=== PATIENT | male | born 1950 | race Caucasian/White ===

== ENCOUNTER 2019-06-09 09:11 | Day surgery (SDC) | payer OTHER, MEDICARE ==
[~2019-06-09 09:11] MED LIST: LIDOCAINE 2% INJ-PF (20 MG/ML) 10 ML AMPUL ONE; PROPOFOL INJ 200 MG/20 ML VIAL IV ONE
--- NOTE | 2019-06-09 11:41 | Operative Report ---
Operative Report DATE OF SURGERY: 06/09/19 Operative Report: Risk, benefits and alternatives of the procedure including risk of bleeding, perforation requiring surgery have been explained to the patient in detail and informed consent has been obtained. Patient is taken back to the endoscopy suite and placed in the left, lateral decubital position. Timeout was called. Propofol medication is administered. Rectal examination is done which did not reveal any masses, tears or fissures. An Olympus videoscope was introduced into the patient's rectum. Scope was then carefully advanced all the way to the cecum. Cecum was identified by the usual anatomical landmarks including the ileocecal valve as well as the appendiceal office. Photodocumentation is obtained. Scope was then sequentially pulled back via the various segments of the colon including the ascending colon, hepatic flexure, transverse colon, splenic flexure, descending colon and finally into the rectosigmoid portions of the colon. Retroflexion maneuver is performed. The risks benefits and alternatives of the procedure explained to the patient in detail and informed consent is obtained.A GIF Olympus video scope was inserted into the patient's mouth and hypopharynx ,the esophagus is identified intubated and insufflated ,the scope was then advanced through the esophagus stomach and duodenum, retroflexion maneuver is done the esophagus stomach and first and second portions of the duodenum examined PREOPERATIVE DIAGNOSIS: Weight loss, abdominal pain, change of bowel habits POSTOPERATIVE DIAGNOSIS: Right colon Inflammation status post biopsy. Internal hemorrhoids. Gastritis status post biopsy. Isaacs's esophagus status post biopsy OPERATION: Colonoscopy with biopsy. EGD with biopsy SURGEON: JAMES SHAW ANESTHESIA: LMAC TISSUE REMOVED OR ALTERED: As noted above. COMPLICATIONS: None. ESTIMATED BLOOD LOSS: None. INTRAOPERATIVE FINDINGS: As noted above. PROCEDURE: Patient tolerated the procedure well. No immediate postprocedure complications are noted. Patient is discharged in good condition. Discharge date 06/09/2019. Discharge diet: Regular. Discharge activity: Regular. 2 to 3-week follow-up to discuss findings. Patient is instructed to go to the emergency room or call the office should there be any further problems or questions. 5-year surveillance colonoscopy.
[2019-06-09 11:57] VITALS: BP 136/67
== END 2019-06-09 11:45 | disposition home or self-care (01) ==
LOC: END 09:11
PROVIDERS: ATTEND Internal Medicine Gastroenterology
DX: K29.50 Unspecified chronic gastritis without bleeding (principal); K20.9 Esophagitis, unspecified; K52.9 Noninfective gastroenteritis and colitis, unspecified; K64.8 Other hemorrhoids; Z79.899 Other long term (current) drug therapy; R63.4 Abnormal weight loss; Z68.26 Body mass index [BMI] 26.0-26.9, adult; J44.9 Chronic obstructive pulmonary disease, unspecified; I25.2 Old myocardial infarction; F17.210 Nicotine dependence, cigarettes, uncomplicated; Z79.02 Long term (current) use of antithrombotics/antiplatelets
CPT/HCPCS: 43239; 45380; 88342 ×2; 88305 ×2; 00813; J2704; J3490; 813

== ENCOUNTER → 2019-07-24 | Outpatient (CLI) | payer OTHER ==
--- NOTE | 2019-07-24 15:26 | RADIOLOGY REPORT (SQ) ---
EXAM DESCRIPTION: SMALL BOWEL SERIES COMPLETED DATE/TIME: 07/24/2019 2:59 pm REASON FOR STUDY: (K63.89)OTHER SPECIFIED DISEASES OF INTESTINE K63.89 OTHER SPECIFIED DISEASES OF INTESTINE suspected small-bowel mass, seen on outside previous CT the abdomen and pelvis COMPARISON: CT abdomen pelvis 05/17/2019 FLUOROSCOPY TIME: 1.1 minutes of fluoroscopy was used. 6 images saved to PACS. LIMITATIONS: None. PROCEDURE: Initial crystal slicer image of abdomen acquired, followed by administration of thin barium. Seri al radiographic images acquired. Fluoroscopic images recorded of the terminal ileum and other indica stephanie areas. All images stored on PACS. FINDINGS: COREMAKER FLOOR KUB: Non-obstructive bowel pattern. No abnormal calcifications. Soft tissue planes normal. Right upper quadrant surgical clips from previous cholecystectomy. Solitary surgical clip seen in the right lower quadrant. Status post left hip arthroplasty STOMACH: Large sliding hiatal hernia with moderate free-flowing gastroesophageal reflux. Normal dist ention without abnormality. DUODENUM: Normal mucosal pattern with adequate distention. No displacement or obstruction. JEJUNUM: Normal mucosal pattern. No dilatation, segmentation, strictures or masses. ILEUM: Normal mucosal pattern. No dilatation, segmentation, strictures or masses. On the 3 hour del ayed image contrast can be seen overlying the right groin and patient complained of increased pressur e and pain in the right inguinal area. On the 4 and 5 hour delayed image, there is increased in amou nt of contrast overlying the right groin with soft tissue density visualize on imaging and painful to palpation. Gentle palpation and compression failed to reduce the the inguinal hernia. There is par tial obstruction of the terminal ileum due to the inguinal hernia. Dr. Munguia was called for input and stated he will come to the radiology department to reduce the right inguinal hernia. Dr. Marie rg reduced the hernia and abdominal radiograph shows contrast extending into the ascending colon. TERMINAL ILEUM AND ILEO-CECAL VALVE: Right inguinal hernia containing the terminal ileum and cecum wa s reduced by Dr. Munguia. PROXIMAL COLON: Incompletely imaged. With slight mucosal thickening of the ascending colon possibly due to edema. OTHER: No other significant finding. IMPRESSION: RIGHT INGUINAL HERNIA CONTAINING IN THE TERMINAL ILEUM AND CECUM CAUSING INTERMITTENT SM ALL BOWEL OBSTRUCTION. HERNIA WAS REDUCED BY THE SURGEON DESCRIBED ABOVE. NO VISUALIZATION OF SMALL BOWEL MASS SEEN ON PREVIOUS CT ABDOMEN PELVIS. HE WAS LARGE HIATAL HERNIA WITH MODERATE FREE-FLOWING GASTROESOPHAGEAL REFLUX. COMMENT: Quality ID [id number]: Final reports for procedures using fluoroscopy that document radiation exp osure indices, or exposure time and number of fluorographic images (if radiation exposure indices are not available) TECHNICAL DOCUMENTATION: JOB ID: [id number] 2010 [employer]- All Rights Reserved Reading location - IP/workstation name: [email or web address]
== END ==
LOC: RAD 08:04
PROVIDERS: ATTEND Surgery
DX: K63.89 Other specified diseases of intestine (principal); K40.90 Unilateral inguinal hernia, without obstruction or gangrene, not specified as recurrent
CPT/HCPCS: 74250

== ENCOUNTER 2019-08-08 05:53 | Inpatient (IN) | payer OTHER, MEDICARE ==
[2019-08-07 10:37] LABS: ABSOLUTE LYMPHOCYTES (AUTO) 0.6 10^3/uL (0.5-4.7); ABSOLUTE MONOCYTES (AUTO) 0.4 10^3/uL (0.1-1.4); BASOPHILS % (AUTO) 0.1 % (0-2); EOSINOPHILS % (AUTO) 0.6 % (0-6); HEMATOCRIT 28.1 % (37.9-51.0); HEMOGLOBIN 10.2 g/dL (13.5-17.0); LYMPHOCYTES % (AUTO) 15.9 % (13-45); MEAN CORPUSCULAR HEMOGLOBIN 31.3 pg (27.0-33.4); MEAN CORPUSCULAR HGB CONC 36.3 g/dL (32.0-36.0); MEAN CORPUSCULAR VOLUME 86 fl (80-97); MONOCYTES % (AUTO) 9.2 % (3-13); PLATELET COUNT 107 10^3/uL (150-450); RED BLOOD COUNT 3.26 10^6/uL (4.35-5.55); RED CELL DISTRIBUTION WIDTH 13.7 % (11.5-14.0); SEGMENTED NEUTROPHILS % (AUTO) 74.2 % (42-78); TOTAL CELLS COUNTED % (AUTO) 100 %; WHITE BLOOD COUNT 4.1 10^3/uL (4.0-10.5)
[2019-08-07 11:10] LABS: ANION GAP 7 (5-19); BLOOD UREA NITROGEN 19 mg/dL (7-20); CALCIUM 8.8 mg/dL (8.4-10.2); CARBON DIOXIDE 22 mmol/L (22-30); CHLORIDE 96 mmol/L (98-107); GLUCOSE 103 mg/dL (75-110); POTASSIUM 5.2 mmol/L (3.6-5.0)
[~2019-08-08 05:53] MED LIST changes: +CEFAZOLIN 1 GM/D5W RTU 1 GM/50 ML RTUPB IV PRN; +LACTATED RINGERS 1000 ML IV PRN; +LIDOCAINE 0.5% INJ-PF (5 MG/ML) 50 ML SDV SUBCUT PRN; -LIDOCAINE 2% INJ-PF (20 MG/ML) 10 ML AMPUL ONE; -PROPOFOL INJ 200 MG/20 ML VIAL IV ONE
[2019-08-08] MEDS ORDERED: CEFAZOLIN 1 GM/D5W RTU 1 GM/50 ML RTUPB IV ONE (06:15)
[2019-08-08 06:42] LABS: ABSOLUTE EOSINOPHILS # (AUTO) 0.1 10^3/uL (0.0-0.6); ABSOLUTE LYMPHOCYTES (AUTO) 0.8 10^3/uL (0.5-4.7); ABSOLUTE MONOCYTES (AUTO) 0.4 10^3/uL (0.1-1.4); ABSOLUTE NEUT (AUTO) 3.3 10^3/uL (1.7-8.2); BASOPHILS % (AUTO) 0.2 % (0-2); EOSINOPHILS % (AUTO) 1.4 % (0-6); HEMATOCRIT 26.3 % (37.9-51.0); HEMOGLOBIN 9.6 g/dL (13.5-17.0); LYMPHOCYTES % (AUTO) 17.5 % (13-45); MEAN CORPUSCULAR HEMOGLOBIN 31.4 pg (27.0-33.4); MEAN CORPUSCULAR HGB CONC 36.5 g/dL (32.0-36.0); MEAN CORPUSCULAR VOLUME 86 fl (80-97); PLATELET COUNT 110 10^3/uL (150-450); RED BLOOD COUNT 3.05 10^6/uL (4.35-5.55); RED CELL DISTRIBUTION WIDTH 13.8 % (11.5-14.0); SEGMENTED NEUTROPHILS % (AUTO) 71.9 % (42-78); TOTAL CELLS COUNTED % (AUTO) 100 %; WHITE BLOOD COUNT 4.6 10^3/uL (4.0-10.5)
[2019-08-08 06:52] LABS: BLOOD UREA NITROGEN 19 mg/dL (7-20); CALCIUM 8.7 mg/dL (8.4-10.2); GLUCOSE 106 mg/dL (75-110)
[2019-08-08 06:53] LABS: ANION GAP 8 (5-19); CARBON DIOXIDE 19 mmol/L (22-30); CHLORIDE 96 mmol/L (98-107); POTASSIUM 4.9 mmol/L (3.6-5.0)
[2019-08-08] MEDS ORDERED: FENTANYL CITRATE INJ/PF 250 MCG/5 ML AMPULE ONE (06:54)
[2019-08-08] MEDS ORDERED: DEXAMETHASONE SOD PHOSPHATE INJ 4 MG/1 ML VIAL ONE (06:55)
[2019-08-08] MEDS ORDERED: PROPOFOL INJ 200 MG/20 ML VIAL IV ONE (06:55)
[2019-08-08] MEDS ORDERED: MIDAZOLAM 2 MG/2 ML INJ ONE (06:55)
[2019-08-08] MEDS ORDERED: HYDROMORPHONE HCL INJ/PF 2 MG/ML AMPULE ONE (06:55)
[2019-08-08] MEDS ORDERED: ONDANSETRON HCL INJ/PF 4 MG/2 ML SDV ONE (06:55)
[2019-08-08] MEDS ORDERED: MORPHINE SULFATE 10 MG/ML INJ IV PRN (08:01)
[2019-08-08] MEDS ORDERED: DEXTROSE 40% GEL 15 GM TUBE PO PRN ×2 (08:01)
[2019-08-08] MEDS ORDERED: DEXTROSE 50%-WATER 25 GM/50 ML DISP.SYRIN IV PRN ×2 (08:01)
[2019-08-08] MEDS ORDERED: GLUCAGON,HUMAN RECOMB 1 MG INJ SUBCUT PRN (08:01)
[2019-08-08 08:05] LABS: CHOLESTEROL 96.46 mg/dL (0-200); TRIGLYCERIDES 39 mg/dL (<150)
--- NOTE | 2019-08-08 08:10 | Progress Note ---
Provider Note Provider Note: pt found to be hyponatremic this am on preop labs etiol ? I have asked medicine to eval and help correct abnormalities and have rescheduled him for .
[2019-08-08 08:16] LABS: DIRECT LDL 39 mg/dL (<100)
[2019-08-08] MEDS: FAMOTIDINE INJ/PF 20 MG/2 ML SDV IV SCH ×2 (09:29→22:23)
--- NOTE | 2019-08-08 13:29 | PDOC CONSULTATION ---
Consultation Consult Date: 08/08/19 Attending physician:: ANNETTE DAHL Provider Consulted: ROMARIO PHELAN Consult reason:: Hyponatremia, hyperkalemia History of Present Illness Admission Date/PCP: 08/08/19 08:01 [facility] Patient complains of: Elective surgery History of Present Illness: JUANA SR is a 68 year old male with history of hypertension, hernia, BPH, CAD status post PCI, who presents to the hospital for elective abdominal surgery for treatment of patient's intermittent small bowel obstruction. Patient was meant to have this procedure done in the outpatient setting. However preop labs revealed hyponatremia and hyperkalemia prompting consultation to hospitalist service for management of electrolyte abnormalities. On conversation with patient, patient denies any changes to his medications. States that he does not take any diuretics. Denies any prior knowledge of low sodium levels. He does take potassium supplements which I will discontinue. Patient denies any history of known renal disease, liver disease or congestive heart failure. Patient does admit to not hydrating as much as he should. Past Medical History Cardiac Medical History: Reports: Coronary Artery Disease, Hypertension Denies: Myocardial Infarction Pulmonary Medical History: Denies: Asthma, Bronchitis, Chronic Obstructive Pulmonary Disease (COPD), Pneumonia Neurological Medical History: Denies: Seizures Musculoskeltal Medical History: Denies: Arthritis Hematology: Denies: Anemia Past Surgical History Past Surgical History: Reports: Coronary Stent Social History Information Source: Patient Smoking Status: Never Smoker Frequency of Alcohol Use: None Hx Recreational Drug Use: No - Advance Directive Resuscitation Status: Full Code Family History Family History: Hypertension, Malignancy Parental Family History Reviewed: Yes Children Family History Reviewed: NA Sibling(s) Family History Reviewed.: NA Medication/Allergy Home Medications: Clopidogrel Bisulfate [Clopidogrel] 75 mg PO DAILY 06/08/19 Isosorbide Mononitrate [Imdur 30 mg Tablet.er] 30 mg PO DAILY 06/08/19 Meloxicam [Qmiiz Odt] 15 mg PO DAILY 06/08/19 Metoprolol Tartrate [Lopressor] 50 mg PO DAILY 06/08/19 Omeprazole 20 mg PO BID 06/08/19 Potassium Chloride 10 meq PO BID 06/08/19 Terazosin HCl 10 mg PO DAILY 06/08/19 Allergies/Adverse Reactions: No Known Allergies Allergy (Verified 08/08/19 06:11) Review of Systems Constitutional: ABSENT: fatigue, fever(s), headache(s) Eyes: ABSENT: visual disturbances Nose, Mouth, and Throat: ABSENT: headache(s) Cardiovascular: ABSENT: chest pain Respiratory: ABSENT: cough Gastrointestinal: PRESENT: abdominal pain Integumentary: ABSENT: diaphoresis Neurological: ABSENT: confusion, dizziness Psychiatric: ABSENT: anxiety Endocrine: PRESENT: other - Nocturia Hematologic/Lymphatic: ABSENT: lymphadenopathy Allergic/Immunologic: ABSENT: seasonal rhinorrhea Physical Exam Vital Signs: Temp Pulse Resp BP Pulse Ox 97.6 F 56 L 17 98/48 L 100 08/08/19 08:01 08/08/19 08:01 08/08/19 08:01 08/08/19 08:01 08/08/19 08:01 Intake & Output 08/07/19 08/08/19 08/09/19 06:59 06:59 06:59 Intake Total 50 Balance 50 Weight 66.22 kg General appearance: PRESENT: no acute distress, cooperative, thin. ABSENT: mild distress, morbidly obese Head exam: PRESENT: normocephalic Neck exam: ABSENT: JVD Respiratory exam: PRESENT: clear to auscultation luly, unlabored. ABSENT: tachy pnea, wheezes Cardiovascular exam: PRESENT: RRR, +S1, +S2. ABSENT: tachycardia GI/Abdominal exam: PRESENT: soft, tenderness. ABSENT: rebound, rigid Extremities exam: ABSENT: calf tenderness, pedal edema Musculoskeletal exam: ABSENT: ambulatory Neurological exam: PRESENT: alert, awake, oriented to person, oriented to place, oriented to time Psychiatric exam: ABSENT: agitated, anxious Focused psych exam: ABSENT: pressured speech Skin exam: ABSENT: jaundice Results Laboratory Results: 08/08/19 06:26 08/08/19 06:26 08/08/19 08/08/19 08/08/19 06:26 06:26 06:26 WBC 4.6 RBC 3.05 L Hgb 9.6 L Hct 26.3 L MCV 86 MCH 31.4 MCHC 36.5 H RDW 13.8 Plt Count 110 L Seg Neutrophils % 71.9 Sodium 123.4 L Potassium Cancelled 4.9 Chloride 96 L Carbon Dioxide 19 L Anion Gap 8 BUN 19 Creatinine 1.34 H Est GFR ( Amer) > 60 Glucose 106 Serum Osmolality Calcium 8.7 Triglycerides Cholesterol LDL Cholesterol Direct VLDL Cholesterol HDL Cholesterol TSH 08/08/19 08/08/19 08/08/19 06:26 06:26 06:26 WBC RBC Hgb Hct MCV MCH MCHC RDW Plt Count Seg Neutrophils % Sodium Potassium Chloride Carbon Dioxide Anion Gap BUN Creatinine Est GFR ( Amer) Glucose Serum Osmolality 255 L Calcium Triglycerides 39 Cholesterol 96.46 LDL Cholesterol Direct 39 VLDL Cholesterol 8.0 L HDL Cholesterol 48 TSH 3.66 Assessment and Plan - Diagnosis (1) Hyponatremia Is this a current diagnosis for this admission?: Yes Plan: Etiology unclear. Patient does appear to have euvolemic hypoosmolar h yponatremia TSH, a.m. cortisol within normal limits. No evidence of fluid overload. Lipid panel within normal limits. Check urine sodium and osmolarity to evaluate for SIADH Hold PPI for now. Can substitute with Pepcid Repeat CMP Once labs are back, will try either fluids or sodium chloride tablets based off urine studies. (2) Hyperkalemia Is this a current diagnosis for this admission?: Yes Plan: Potentially secondary to kidney disease and potassium chloride supplements. Will hold KCl supplements for now and monitor metabolic panel. (3) Creatinine elevation Is this a current diagnosis for this admission?: Yes Plan: Uncertain if this is acute or chronic as we have no baseline creatinine level for comparison. Will monitor and does seem to have improved mildly after fluid administration. - Time Time Spent with patient: 25-34 minutes
[2019-08-08] MEDS: SODIUM CHLORIDE 1 GM TABLET PO SCH ×2 (14:01→17:28)
[2019-08-08 14:08] LABS: URINE CREATININE 151.9 mg/dL (22-328)
[2019-08-08 17:25] LABS: ALBUMIN 3.1 g/dL (3.5-5.0); ALKALINE PHOSPHATASE 50 U/L (38-126); ASPARTATE AMINO TRANSFERASE 21 U/L (17-59); BILIRUBIN,TOTAL 0.9 mg/dL (0.2-1.3); BLOOD UREA NITROGEN 19 mg/dL (7-20); CALCIUM 8.3 mg/dL (8.4-10.2); CARBON DIOXIDE 20 mmol/L (22-30); CHLORIDE 91 mmol/L (98-107); GLUCOSE 88 mg/dL (75-110)
[2019-08-08 17:27] LABS: ANION GAP 7 (5-19)
[2019-08-08] MEDS: TAMSULOSIN HCL 0.4 MG CAP.SR.24H PO SCH (17:28)
[2019-08-08] MEDS: PANTOPRAZOLE SODIUM 20 MG TABLET.DR PO SCH (17:28)
[2019-08-08] MEDS ORDERED: NORMAL SALINE 1000 ML 1,000 ML IV ONE (18:45)
[2019-08-08] MEDS ORDERED: SODIUM CHLORIDE 3% 100 ML IV ONE (19:30)
[2019-08-08 23:16] LABS: BLOOD UREA NITROGEN 17 mg/dL (7-20); CALCIUM 8.2 mg/dL (8.4-10.2); CARBON DIOXIDE 19 mmol/L (22-30); CHLORIDE 93 mmol/L (98-107); GLUCOSE 89 mg/dL (75-110); POTASSIUM 4.6 mmol/L (3.6-5.0)
[2019-08-08 23:33] LABS: ANION GAP 7 (5-19)
[2019-08-09 06:18] LABS: ABSOLUTE EOSINOPHILS # (AUTO) 0.1 10^3/uL (0.0-0.6); ABSOLUTE MONOCYTES (AUTO) 0.4 10^3/uL (0.1-1.4); ABSOLUTE NEUT (AUTO) 2.4 10^3/uL (1.7-8.2); BASOPHILS % (AUTO) 0.3 % (0-2); EOSINOPHILS % (AUTO) 2.2 % (0-6); HEMATOCRIT 25.7 % (37.9-51.0); HEMOGLOBIN 9.5 g/dL (13.5-17.0); LYMPHOCYTES % (AUTO) 25.7 % (13-45); MEAN CORPUSCULAR HEMOGLOBIN 31.6 pg (27.0-33.4); MEAN CORPUSCULAR HGB CONC 36.8 g/dL (32.0-36.0); MEAN CORPUSCULAR VOLUME 86 fl (80-97); MONOCYTES % (AUTO) 11.3 % (3-13); PLATELET COUNT 105 10^3/uL (150-450); RED BLOOD COUNT 2.99 10^6/uL (4.35-5.55); SEGMENTED NEUTROPHILS % (AUTO) 60.5 % (42-78); TOTAL CELLS COUNTED % (AUTO) 100 %; WHITE BLOOD COUNT 3.9 10^3/uL (4.0-10.5)
[2019-08-09 06:35] LABS: ANION GAP 9 (5-19); BLOOD UREA NITROGEN 15 mg/dL (7-20); CALCIUM 8.6 mg/dL (8.4-10.2); CARBON DIOXIDE 19 mmol/L (22-30); CHLORIDE 97 mmol/L (98-107); GLUCOSE 86 mg/dL (75-110); POTASSIUM 4.9 mmol/L (3.6-5.0)
[2019-08-09] MEDS ORDERED: DEXTROSE 50%-WATER 25 GM/50 ML DISP.SYRIN IV PRN ×2 (08:43)
[2019-08-09] MEDS ORDERED: GLUCAGON,HUMAN RECOMB 1 MG INJ SUBCUT PRN (08:43)
[2019-08-09] MEDS ORDERED: DEXTROSE 40% GEL 15 GM TUBE PO PRN ×2 (08:43)
--- NOTE | 2019-08-09 08:43 | PDOC PROGRESS REPORT ---
Subjective Progress Note for:: 08/09/19 Subjective:: feels ok Reason For Visit: SMALL BOWEL MASS, HYPONATREMIA Physical Exam Vital Signs: Temp Pulse Resp BP Pulse Ox 97.6 F 52 L 14 108/52 L 100 08/09/19 07:51 08/09/19 07:51 08/09/19 07:51 08/09/19 07:51 08/09/19 07:51 Intake & Output 08/08/19 08/09/19 08/10/19 06:59 06:59 06:59 Intake Total 50 1858 Output Total 50 Balance 50 1808 Weight 66.22 kg 66.2 kg General appearance: PRESENT: no acute distress Head exam: PRESENT: normocephalic Eye exam: PRESENT: EOMI Ear exam: PRESENT: normal external ear exam Mouth exam: PRESENT: moist Teeth exam: PRESENT: poor dentation Neck exam: PRESENT: full ROM Respiratory exam: PRESENT: clear to auscultation luly Cardiovascular exam: PRESENT: RRR Pulses: PRESENT: normal radial pulses, normal femoral pulses Breast: PRESENT: Normal GI/Abdominal exam: PRESENT: soft Rectal exam: PRESENT: deferred Extremities exam: PRESENT: full ROM Musculoskeletal exam: PRESENT: full ROM Neurological exam: PRESENT: alert, awake, oriented to place Skin exam: PRESENT: dry Results Laboratory Results: 08/09/19 05:34 08/09/19 05:34 08/08/19 08/08/19 08/08/19 06:26 06:26 13:10 WBC RBC Hgb Hct MCV MCH MCHC RDW Plt Count Seg Neutrophils % Sodium Potassium Chloride Carbon Dioxide Anion Gap BUN Creatinine Est GFR ( Amer) Glucose Serum Osmolality 255 L Calcium Total Bilirubin AST Alkaline Phosphatase Total Protein Albumin TSH 3.66 Urine Osmolality 353 08/08/19 08/08/19 08/09/19 16:44 22:44 05:34 WBC 3.9 L RBC 2.99 L Hgb 9.5 L Hct 25.7 L MCV 86 MCH 31.6 MCHC 36.8 H RDW 14.0 Plt Count 105 L Seg Neutrophils % 60.5 Sodium 118.3 L* 119.4 L* Potassium 5.0 4.6 Chloride 91 L 93 L Carbon Dioxide 20 L 19 L Anion Gap 7 7 BUN 19 17 Creatinine 1.33 H 1.22 Est GFR ( Amer) > 60 > 60 Glucose 88 89 Serum Osmolality Calcium 8.3 L 8.2 L Total Bilirubin 0.9 AST 21 Alkaline Phosphatase 50 Total Protein 6.0 L Albumin 3.1 L TSH Urine Osmolality 08/09/19 05:34 WBC RBC Hgb Hct MCV MCH MCHC RDW Plt Count Seg Neutrophils % Sodium 125.3 L Potassium 4.9 Chloride 97 L Carbon Dioxide 19 L Anion Gap 9 BUN 15 Creatinine 1.08 Est GFR ( Amer) > 60 Glucose 86 Serum Osmolality Calcium 8.6 Total Bilirubin AST Alkaline Phosphatase Total Protein Albumin TSH Urine Osmolality Assessment & Plan - Plan Summary Plan Summary: appreciate input from medicine sodium 125 this am on hypertonic saline prob siadh ?etiol pt preop for diagnostic laparoscopy in am and hernia repair will cont current rx recheck labs at noon.
[2019-08-09] MEDS ORDERED: (PENDING PHARMACY ID) (Terazosin Hcl [Terazosin Hcl] 10 MG) PO SCH (10:00)
[2019-08-09] MEDS ORDERED: METOPROLOL TARTRATE 50 MG TABLET PO SCH (10:00)
[2019-08-09] MEDS: FAMOTIDINE INJ/PF 20 MG/2 ML SDV IV SCH (10:01)
[2019-08-09] MEDS: DOXAZOSIN MESYLATE 4 MG TABLET PO SCH (10:22)
[2019-08-09] MEDS: ISOSORBIDE MONONITRATE 30 MG TAB.ER.24H PO SCH (10:22)
[2019-08-09] MEDS: PANTOPRAZOLE SODIUM 20 MG TABLET.DR PO SCH ×2 (10:23→17:52)
[2019-08-09] MEDS: SODIUM CHLORIDE 1 GM TABLET PO SCH ×3 (10:29→17:52)
[2019-08-09 12:20] LABS: ANION GAP 6 (5-19); BLOOD UREA NITROGEN 14 mg/dL (7-20); CALCIUM 8.6 mg/dL (8.4-10.2); CARBON DIOXIDE 22 mmol/L (22-30); CHLORIDE 96 mmol/L (98-107); GLUCOSE 89 mg/dL (75-110); POTASSIUM 4.8 mmol/L (3.6-5.0)
--- NOTE | 2019-08-09 12:47 | PDOC PROGRESS REPORT ---
Subjective Progress Note for:: 08/09/19 Subjective:: Patient denies any shortness of breath, chest pain today. Feels well has no complaints. Reason For Visit: SMALL BOWEL MASS, HYPONATREMIA Physical Exam Vital Signs: Temp Pulse Resp BP Pulse Ox 97.6 F 52 L 14 108/52 L 100 08/09/19 07:51 08/09/19 07:51 08/09/19 07:51 08/09/19 07:51 08/09/19 07:51 Intake & Output 08/08/19 08/09/19 08/10/19 06:59 06:59 06:59 Intake Total 50 1858 Output Total 50 Balance 50 1808 Weight 66.22 kg 66.2 kg General appearance: PRESENT: no acute distress, cooperative Neck exam: ABSENT: JVD Respiratory exam: PRESENT: clear to auscultation luly, unlabored. ABSENT: tachypnea, wheezes Cardiovascular exam: PRESENT: bradycardia, rubs, +S2. ABSENT: tachycardia GI/Abdominal exam: PRESENT: soft. ABSENT: rebound, rigid, tenderness Musculoskeletal exam: PRESENT: ambulatory Neurological exam: PRESENT: alert, awake, oriented to person, oriented to place, oriented to time, oriented to situation Results Laboratory Results: 08/09/19 05:34 08/09/19 11:45 08/08/19 08/08/19 08/08/19 13:10 16:44 22:44 WBC RBC Hgb Hct MCV MCH MCHC RDW Plt Count Seg Neutrophils % Sodium 118.3 L* 119.4 L* Potassium 5.0 4.6 Chloride 91 L 93 L Carbon Dioxide 20 L 19 L Anion Gap 7 7 BUN 19 17 Creatinine 1.33 H 1.22 Est GFR ( Amer) > 60 > 60 Glucose 88 89 Calcium 8.3 L 8.2 L Total Bilirubin 0.9 AST 21 Alkaline Phosphatase 50 Total Protein 6.0 L Albumin 3.1 L Urine Osmolality 353 08/09/19 08/09/19 08/09/19 05:34 05:34 11:45 WBC 3.9 L RBC 2.99 L Hgb 9.5 L Hct 25.7 L MCV 86 MCH 31.6 MCHC 36.8 H RDW 14.0 Plt Count 105 L Seg Neutrophils % 60.5 Sodium 125.3 L 124.2 L Potassium 4.9 4.8 Chloride 97 L 96 L Carbon Dioxide 19 L 22 Anion Gap 9 6 BUN 15 14 Creatinine 1.08 1.14 Est GFR ( Amer) > 60 > 60 Glucose 86 89 Calcium 8.6 8.6 Total Bilirubin AST Alkaline Phosphatase Total Protein Albumin Urine Osmolality Assessment and Plan - Diagnosis (1) Hyponatremia Is this a current diagnosis for this admission?: Yes Plan: Etiology unclear but possibly SIADH. Patient does appear to have euvolemic hypoosmolar hyponatremia TSH, a.m. cortisol within normal limits. No evidence of fluid overload. Lipid panel within normal limits. Worsened after IV fluids yesterday but improved after hypertonic saline yesterday. 100 cc was given. Currently on 1 L fluid restriction. Continue sodium chloride tablets. We will recheck urine osmolarity and sodium level. I have consulted nephrology to assist in management of hyponatremia and have discussed case with Dr. Nicholson. (2) Hyperkalemia Is this a current diagnosis for this admission?: Yes Plan: Secondary to oral consumption of potassium chloride supplements. Currently resolved after discontinuation of supplements. (3) Sinus bradycardia Is this a current diagnosis for this admission?: Yes Plan: Bradycardia resolves once patient gets up and ambulates indicating appropriate and adequate physiologic response to stress/exertion. EKG shows sinus bradycardia without any evidence of AV block. No need for intervention. (4) PERFECTO (acute kidney injury) Is this a current diagnosis for this admission?: Yes Plan: Resolved - Time Time Spent with patient: 15-24 minutes
--- NOTE | 2019-08-09 16:07 | PDOC CONSULTATION ---
Consultation Consult Date: 08/09/19 Provider Consulted: Lexie PRAKASH Consult reason:: Hyponatremia History of Present Illness Admission Date/PCP: 08/08/19 08:01 [facility] History of Present Illness: JUANA SR is a 68 year old male with history of hypertension, hernia, BPH, CAD status post PCI, was admitted to the hospital for elective abdominal surgery for treatment of patient's intermittent small bowel obstruction. Patient was meant to have this procedure done in the outpatient setting. However preop labs revealed hyponatremia and hyperkalemia. Patient is a poor historian. He says he is not been eating hardly anything for the last few weeks. He has apparently had intermittent abdominal pains He has been existing on some clear liquids including soup. He says he drinks around 3- 4 bottles of water for the last many days. No history of any diuretics. No history of any nausea vomiting or diarrhea. He denies any history of previous kidney or heart diseases.Admission labs are shown a sodium of 125 and couple of days later his sodium dropped to 118. He was then reinfused with normal saline instead of hypotonic solutions that was introduced earlier and his sodium today is 125. Patient denies any history of chest pains or any abdominal pains. He is resting quite comfortably and in no distress at the moment. . Past Medical History Cardiac Medical History: Reports: Coronary Artery Disease Denies: Myocardial Infarction Pulmonary Medical History: Denies: Asthma, Bronchitis, Chronic Obstructive Pulmonary Disease (COPD), Pneumonia Neurological Medical History: Denies: Seizures Musculoskeltal Medical History: Denies: Arthritis Psychiatric Medical History: Denies: Depression Past Surgical History Past Surgical History: Reports: Coronary Stent Social History Smoking Status: Never Smoker Frequency of Alcohol Use: None Hx Recreational Drug Use: No Hx Prescription Drug Abuse: No - Advance Directive Resuscitation Status: Full Code Family History Parental Family History Reviewed: No Children Family History Reviewed: No Sibling(s) Family History Reviewed.: No Medication/Allergy Home Medications: Clopidogrel Bisulfate [Clopidogrel] 75 mg PO DAILY 06/08/19 Isosorbide Mononitrate [Imdur 30 mg Tablet.er] 30 mg PO DAILY 06/08/19 Meloxicam [Qmiiz Odt] 15 mg PO DAILY 06/08/19 Metoprolol Tartrate [Lopressor] 50 mg PO DAILY 06/08/19 Omeprazole 20 mg PO BID 06/08/19 Potassium Chloride 10 meq PO BID 06/08/19 Terazosin HCl 10 mg PO DAILY 06/08/19 Allergies/Adverse Reactions: No Known Allergies Allergy (Verified 08/08/19 16:33) Review of Systems Constitutional: PRESENT: anorexia, fatigue, weakness. ABSENT: fever(s) Nose, Mouth, and Throat: ABSENT: sore throat Cardiovascular: ABSENT: edema, orthropnea, palpitations Gastrointestinal: PRESENT: abdominal pain. ABSENT: coffee ground emesis, diarrhea, dysphagia, heartburn, hematemesis, nausea, vomiting Genitourinary: ABSENT: dysuria, hematuria Musculoskeletal: ABSENT: deformity, joint swelling Integumentary: ABSENT: lesions, pruritus, rash Neurological: ABSENT: abnormal movements, abnormal speech, convulsions, focal weakness, lack of coordination Hematologic/Lymphatic: ABSENT: easy bruising, lymphadenopathy Physical Exam Vital Signs: Temp Pulse Resp BP Pulse Ox 98.1 F 88 14 100/52 L 100 08/09/19 11:05 08/09/19 14:00 08/09/19 11:05 08/09/19 11:05 08/09/19 11:05 Intake & Output 08/08/19 08/09/19 08/10/19 06:59 06:59 06:59 Intake Total 50 1858 270 Output Total 50 Balance 50 1808 270 Weight 66.22 kg 66.2 kg General appearance: PRESENT: no acute distress Eye exam: PRESENT: EOMI. ABSENT: scleral icterus Mouth exam: ABSENT: moist Neck exam: ABSENT: lymphadenopathy, meningismus, tenderness, thyromegaly, tracheal deviation Respiratory exam: PRESENT: clear to auscultation luly. ABSENT: crackles Cardiovascular exam: PRESENT: +S1, +S2 GI/Abdominal exam: PRESENT: normal bowel sounds, soft. ABSENT: organomegaly, tenderness Extremities exam: ABSENT: pedal edema Neurological exam: PRESENT: alert, awake, oriented to person Psychiatric exam: PRESENT: depressed, flat affect Skin exam: PRESENT: dry. ABSENT: erythema, mottled, rash Results Laboratory Results: 08/09/19 05:34 08/09/19 11:45 08/08/19 08/08/19 08/09/19 16:44 22:44 05:34 WBC 3.9 L RBC 2.99 L Hgb 9.5 L Hct 25.7 L MCV 86 MCH 31.6 MCHC 36.8 H RDW 14.0 Plt Count 105 L Seg Neutrophils % 60.5 Sodium 118.3 L* 119.4 L* Potassium 5.0 4.6 Chloride 91 L 93 L Carbon Dioxide 20 L 19 L Anion Gap 7 7 BUN 19 17 Creatinine 1.33 H 1.22 Est GFR ( Amer) > 60 > 60 Glucose 88 89 Calcium 8.3 L 8.2 L Total Bilirubin 0.9 AST 21 Alkaline Phosphatase 50 Total Protein 6.0 L Albumin 3.1 L 08/09/19 08/09/19 05:34 11:45 WBC RBC Hgb Hct MCV MCH MCHC RDW Plt Count Seg Neutrophils % Sodium 125.3 L 124.2 L Potassium 4.9 4.8 Chloride 97 L 96 L Carbon Dioxide 19 L 22 Anion Gap 9 6 BUN 15 14 Creatinine 1.08 1.14 Est GFR ( Amer) > 60 > 60 Glucose 86 89 Calcium 8.6 8.6 Total Bilirubin AST Alkaline Phosphatase Total Protein Albumin Assessment & Plan - Diagnosis (1) Hyponatremia Is this a current diagnosis for this admission?: Yes Plan: Labs shows a possible combination of dehydration/SIADH. Given his prolonged history looks like patient has got chronic hyponatremia. I would therefore be very cautious in rapidly elevating his sodium levels to so-called normal levels. Therefore I have discontinued the 3% saline that was being infused at the moment. He needs to be kept po fluid restricted between 800-1000 cc. Patient clinically is quite dry and therefore I would start him on normal saline and follow-up with serial labs. (2) PERFECTO (acute kidney injury) Is this a current diagnosis for this admission?: Yes Plan: Improving with fluids. Monitor. (3) Hyperkalemia Is this a current diagnosis for this admission?: Yes Plan: Has responded to conservative measures including rehydration (4) Hypotension Plan: Given his low normal blood pressures and his EPRFECTO I am going to cut down his metoprolol from 50 to 25 mg daily especially given his sinus bradycardia at 50/min.This may also help him with his hyperkalemia
[2019-08-09 16:59] LABS: ANION GAP 8 (5-19); BLOOD UREA NITROGEN 14 mg/dL (7-20); CALCIUM 8.4 mg/dL (8.4-10.2); CARBON DIOXIDE 20 mmol/L (22-30); CHLORIDE 97 mmol/L (98-107); GLUCOSE 81 mg/dL (75-110)
[2019-08-09] MEDS: TAMSULOSIN HCL 0.4 MG CAP.SR.24H PO SCH (17:52)
[2019-08-09] MEDS: NORMAL SALINE 1000 ML 1,000 ML IV PRN ×2 (18:41→23:18)
[2019-08-09 21:23] LABS: ANION GAP 8 (5-19); BLOOD UREA NITROGEN 14 mg/dL (7-20); CALCIUM 8.4 mg/dL (8.4-10.2); CARBON DIOXIDE 20 mmol/L (22-30); CHLORIDE 98 mmol/L (98-107); GLUCOSE 78 mg/dL (75-110); POTASSIUM 4.7 mmol/L (3.6-5.0)
--- NOTE | 2019-08-09 21:46 | EKG REPORT ---
SEVERITY:- OTHERWISE NORMAL ECG - SINUS BRADYCARDIA LEFT AXIS DEVIATION : Confirmed by: Hilda Reyes MD 09-Aug-2019 21:45:50
[2019-08-09] MEDS ORDERED: TOLVAPTAN 15 MG TABLET PO ONE (23:57)
[2019-08-10] MEDS ORDERED: TOLVAPTAN 15 MG TABLET ONE (01:03)
[2019-08-10 06:03] LABS: HEMATOCRIT 25.8 % (37.9-51.0); HEMOGLOBIN 9.5 g/dL (13.5-17.0); MEAN CORPUSCULAR HGB CONC 36.7 g/dL (32.0-36.0); MEAN CORPUSCULAR VOLUME 87 fl (80-97); RED BLOOD COUNT 2.97 10^6/uL (4.35-5.55); RED CELL DISTRIBUTION WIDTH 13.7 % (11.5-14.0); RETICULOCYTE COUNT (AUTO) 0.66 % (0.66-2.85); WHITE BLOOD COUNT 3.2 10^3/uL (4.0-10.5)
[2019-08-10 06:33] LABS: PLATELET COUNT 96 10^3/uL (150-450)
[2019-08-10 06:38] LABS: ANION GAP 8 (5-19); BLOOD UREA NITROGEN 13 mg/dL (7-20); CALCIUM 8.6 mg/dL (8.4-10.2); CARBON DIOXIDE 20 mmol/L (22-30); CHLORIDE 102 mmol/L (98-107); IRON(TIBC) 109.2 ug/dL (49-181); POTASSIUM 4.5 mmol/L (3.6-5.0)
[2019-08-10 06:57] LABS: GLUCOSE 69 mg/dL (75-110)
[2019-08-10 07:44] LABS: FOLATE 5.94 ng/mL (>2.76)
[2019-08-10] MEDS ORDERED: FENTANYL CITRATE INJ/PF 100 MCG/2 ML AMPUL ONE (07:57)
[2019-08-10] MEDS ORDERED: HYDROMORPHONE HCL INJ/PF 2 MG/ML AMPULE ONE (07:58)
[2019-08-10] MEDS ORDERED: MIDAZOLAM 2 MG/2 ML INJ ONE (07:58)
[2019-08-10] MEDS ORDERED: PROPOFOL INJ 200 MG/20 ML VIAL IV ONE (07:59)
[2019-08-10] MEDS ORDERED: LIDOCAINE 2% INJ (20 MG/ML) 20 ML MDV ONE (08:01)
[2019-08-10] MEDS: DOXAZOSIN MESYLATE 4 MG TABLET PO SCH (09:30)
[2019-08-10] MEDS: ISOSORBIDE MONONITRATE 30 MG TAB.ER.24H PO SCH (09:30)
[2019-08-10] MEDS: SODIUM CHLORIDE 1 GM TABLET PO SCH ×3 (09:31→18:00)
[2019-08-10] MEDS: PANTOPRAZOLE SODIUM 20 MG TABLET.DR PO SCH ×2 (09:31→18:00)
[2019-08-10] MEDS: METOPROLOL TARTRATE 25 MG TABLET PO SCH (09:31)
[2019-08-10] MEDS ORDERED: METOPROLOL TARTRATE 50 MG TABLET PO SCH (10:00)
[2019-08-10] MEDS ORDERED: CEFAZOLIN INJ 1 GM VIAL ONE (10:31)
[2019-08-10] MEDS ORDERED: METRONIDAZOLE 500 MG/NS RTU 500 MG/100 ML RTUPB IV ONE (10:31)
[2019-08-10] MEDS ORDERED: DEXAMETHASONE SOD PHOSPHATE INJ 4 MG/1 ML VIAL ONE (10:42)
[2019-08-10] MEDS ORDERED: ROCURONIUM BROMIDE INJ 50 MG/5 ML VIAL IV ONE (10:42)
[2019-08-10] MEDS ORDERED: PHENYLEPHRINE HCL INJ/PF 10 MG/1 ML SDV ONE (10:42)
[2019-08-10] MEDS ORDERED: GLYCOPYRROLATE 1 MG/5 ML VIAL ONE (10:42)
[2019-08-10] MEDS ORDERED: SUCCINYLCHOLINE CHLORIDE INJ 200 MG/10 ML VIAL ONE (10:42)
[2019-08-10] MEDS ORDERED: BUPIVACAINE INJ/PF LIPOSOME/PF 266 MG/20 ML SDV ONE (10:42)
[2019-08-10] MEDS ORDERED: ONDANSETRON HCL INJ/PF 4 MG/2 ML SDV ONE (10:42)
[2019-08-10] MEDS ORDERED: MEPERIDINE HCL/PF INJ 25 MG/1 ML DISP.SYRIN IV PRN (11:15)
[2019-08-10] MEDS ORDERED: FENTANYL CITRATE INJ/PF 100 MCG/2 ML AMPUL IV PRN ×3 (11:15)
[2019-08-10] MEDS ORDERED: MORPHINE SULFATE 10 MG/ML INJ IV PRN (11:15)
[2019-08-10] MEDS ORDERED: DIPHENHYDRAMINE HCL 50 MG/ML VIAL IV PRN (11:15)
[2019-08-10] MEDS ORDERED: ONDANSETRON HCL INJ/PF 4 MG/2 ML SDV IV PRN (11:15)
--- NOTE | 2019-08-10 12:22 | PDOC PROGRESS REPORT ---
Subjective Progress Note for:: 08/10/19 Subjective:: Patient is doing well today. Patient denies any chest pain, shortness of breath or confusion. Denies any lightheadedness. Reason For Visit: SMALL BOWEL MASS, HYPONATREMIA Physical Exam Vital Signs: Temp Pulse Resp BP Pulse Ox 97.9 F 57 L 14 119/57 L 99 08/10/19 07:07 08/10/19 07:07 08/10/19 07:07 08/10/19 07:07 08/10/19 07:07 Intake & Output 08/09/19 08/10/19 08/11/19 06:59 06:59 06:59 Intake Total 1858 1297 1000 Output Total 50 2900 Balance 1808 -1603 1000 Weight 66.2 kg 65.1 kg General appearance: PRESENT: no acute distress, cooperative Neck exam: ABSENT: JVD Respiratory exam: PRESENT: clear to auscultation luly, unlabored. ABSENT: tachypnea, wheezes Cardiovascular exam: PRESENT: bradycardia, +S1, +S2 Neurological exam: PRESENT: alert, awake Results Laboratory Results: 08/10/19 05:34 08/10/19 05:34 08/09/19 08/09/19 08/09/19 11:45 16:10 20:24 WBC RBC Hgb Hct MCV MCH MCHC RDW Plt Count Retic Count (auto) Sodium 124.2 L 124.5 L 125.6 L Potassium 4.8 5.0 4.7 Chloride 96 L 97 L 98 Carbon Dioxide 22 20 L 20 L Anion Gap 6 8 8 BUN 14 14 14 Creatinine 1.14 1.09 1.05 Est GFR ( Amer) > 60 > 60 > 60 Glucose 89 81 78 Calcium 8.6 8.4 8.4 Iron TIBC % Saturation Ferritin Vitamin B12 Folate Urine Osmolality 08/09/19 08/10/19 08/10/19 22:46 05:34 05:34 WBC 3.2 L RBC 2.97 L Hgb 9.5 L Hct 25.8 L MCV 87 MCH 32.0 MCHC 36.7 H RDW 13.7 Plt Count 96 L Retic Count (auto) 0.66 Sodium 130.0 L Potassium 4.5 Chloride 102 Carbon Dioxide 20 L Anion Gap 8 BUN 13 Creatinine 1.00 Est GFR ( Amer) > 60 Glucose 69 L Calcium 8.6 Iron 109.2 TIBC 206 L % Saturation 53 Ferritin 323.00 Vitamin B12 285.0 Folate 5.94 Urine Osmolality 339 Assessment and Plan - Diagnosis (1) Hyponatremia Is this a current diagnosis for this admission?: Yes Plan: 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 Patient has been hyperosmolar hyponatremia. Patient really received some tolvaptan yesterday given lack of improvement of sodium level. Patient sodium improved significantly to 130 today following tolvaptan administration. Currently hyponatremia being managed by nephrology. (2) Hyperkalemia Is this a current diagnosis for this admission?: Yes Plan: Secondary to oral consumption of potassium chloride supplements. Currently resolved after discontinuation of supplements. Patient should not be discharged on potassium supplements. (3) Sinus bradycardia Is this a current diagnosis for this admission?: Yes Plan: Patient is asymptomatic and bradycardia resolves and heart rate normalizes once patient gets up and ambulates indicating appropriate and adequate physiologic response to stress/exertion. EKG shows sinus bradycardia without any evidence of AV block. TSH within normal limits. No need for intervention or work-up. (4) PERFECTO (acute kidney injury) Is this a current diagnosis for this admission?: Yes Plan: Resolved - Plan Summary Summary: Appreciate nephrology input on currently help in the management of hyponatremia. I will sign off at this point. Call [phone] with questions. - Time Time Spent with patient: Less than 15 minutes
--- NOTE | 2019-08-10 13:28 | Operative Report ---
Nonrecallable Operative Report DATE OF SURGERY: 08/10/19 PREOPERATIVE DIAGNOSIS: bilateral inguinal hernias and possible small bowel mass POSTOPERATIVE DIAGNOSIS: bilateral inguinal hernias with incarceration OPERATION: laparoscopic bilateral inguinal hernia repair with. diagnostic laparoscopy SURGEON: ANNETTE DAHL ANESTHESIA: GA TISSUE REMOVED OR ALTERED: None COMPLICATIONS: None ESTIMATED BLOOD LOSS: 10 cc INTRAOPERATIVE FINDINGS: Incarcerated right inguinal hernia PROCEDURE: Patient was brought to the operating room intubated had been previously placed under general anesthesia in the negative pressure room as per Covidien precautions. He was then placed on the operating table in a supine position and the abdomen was prepped and draped in usual sterile manner for the procedure Rodrigues catheter was placed. After appropriate timeout and site verification the procedure commenced. A infraumbilical incision was made with a 15 blade and dissection was carried down through subcutaneous tissue with Bovie cautery the anterior rectus fascia was identified and opened transversely with a 15 blade. The rectus muscle was identified and retracted laterally and then the Spacemaker balloon was placed on top of the posterior sheath and manipulated to the pubic symphysis. Under direc t vision then the balloon was insufflated to create the space for the hernia repair. Once this was accomplished the the Spacemaker balloon was removed and the working port was placed. 2 5 mm ports were then placed in the midline under direct vision. We turned attention first to the right side we mobilized the loose areolar attachments and the peritoneum away from the right lateral abdominal wall to identify the transversus muscle. We continued our dissection inferior Kee and posteriorly to identify the Haresh's ligament. Once compression ligament was identified identify the epigastric vessels and identified a incarcerated indirect inguinal hernia with a very thick hernia sac. It took some mobilization finally realized the patient had a loop of bowel that was within the hernia sac that was incompletely obstructed with for able to mobilize the hernia sac away from the cord structures and so doing we allowed the bowel then to drop back into the peritoneal cavity. I mobilized this sac proximally by dissecting away from the cord structures and posterior rising it. Once this was accomplished we then used a piece of polypropylene mesh 6 cm long by 3 cm wide with a slit down the side placed into the retroperitoneum fixed posteriorly to Haresh's anteriorly to the rectus muscle lateral to the transversalis muscle wrapping the cord. We then turned attention to the left side similarly we mobilized the loose peritoneal attachments and the areolar tissue away from the transversalis muscle identified the peritoneum and dissected that inferiorly till we reached the Haresh's ligament once this was done we identified the fact that the patient did have a hernia sac in the indirect defect that was easily mobilized with no evidence of incarceration. I mobilized the hernia sac away from the defect there was a large lipoma within the defect that was mobilized up out of the defect and then the similar piece of mesh was placed into the retroperitoneum fixed posteriorly to Haresh's anterior to the rectus and lateral to the transversalis muscle being careful not to injure the lateral femoral cutaneous nerve on either side as well as the ilioinguinal and ileo-hypogastric nerves. Once was the mesh was placed satisfactorily on both sides the pneumo retroperitoneum was reduced. The 5 mm ports were removed. And the balloon tipped 10 mm port removed. I then proceeded with a diagnostic laparoscopy. Placed a varies needle in Cain's point in the left upper quadrant insufflated the abdominal cavity. Once this was accomplished I used the same infraumbilical incision and placed a new 10 mm port into the abdominal cavity intra-abdominal visualization revealed no evidence of Veress needle or trocar injury. We placed 2 lateral 5 mm ports under direct vision. Patient had minimal adhesions in the upper abdomen as well as in the lower abdomen. I did identify the previous peritoneum that had mobilized out of the hernia sac. We then identified the appendix and the cecum I then ran the small bowel from the ileocecal valve all the way to the ligament of Treitz I noted no evidence of any abnormalities. There was no mass that I could palpate there was no further scarring or evidence of obstruction. There was however still fair amount of the fluid and bile in the proximal small bowel proximal to the where the loop of bowel that was incarcerated into the hernia. However this was again an incomplete obstruction. Once we ran the small bowel we look to the liver the stomach the colon at the right colon and the left colon which was easily seen and the transverse colon and no evidence of any other obstruction was identified. I then therefore reduced the pneumoperitoneum. We closed the fascial defect then at the umbilical position with 0 Vicryl in the fascia and closed all skin incisions with intracuticular 4-0 Biosyn and Steri-Strips completed the procedure. Estimated blood loss is for the entire procedure was less than 25 cc sponge and needle counts were correct x2 patient was then transferred out of the operating back to the negative pressure room for extubation.
[2019-08-10] MEDS: FENTANYL CITRATE INJ/PF 100 MCG/2 ML AMPUL ONE ×2 (13:50→13:58)
[2019-08-10] MEDS: TAMSULOSIN HCL 0.4 MG CAP.SR.24H PO SCH (18:00)
[2019-08-11 06:12] LABS: ABSOLUTE LYMPHOCYTES (AUTO) 0.5 10^3/uL (0.5-4.7); ABSOLUTE MONOCYTES (AUTO) 0.5 10^3/uL (0.1-1.4); ABSOLUTE NEUT (AUTO) 4.6 10^3/uL (1.7-8.2); BASOPHILS % (AUTO) 0.1 % (0-2); EOSINOPHILS % (AUTO) 0.1 % (0-6); HEMATOCRIT 24.3 % (37.9-51.0); HEMOGLOBIN 8.9 g/dL (13.5-17.0); LYMPHOCYTES % (AUTO) 9.3 % (13-45); MEAN CORPUSCULAR HEMOGLOBIN 31.7 pg (27.0-33.4); MEAN CORPUSCULAR HGB CONC 36.7 g/dL (32.0-36.0); MEAN CORPUSCULAR VOLUME 86 fl (80-97); MONOCYTES % (AUTO) 8.2 % (3-13); PLATELET COUNT 111 10^3/uL (150-450); RED BLOOD COUNT 2.81 10^6/uL (4.35-5.55); SEGMENTED NEUTROPHILS % (AUTO) 82.3 % (42-78); TOTAL CELLS COUNTED % (AUTO) 100 %; WHITE BLOOD COUNT 5.5 10^3/uL (4.0-10.5)
[2019-08-11 06:40] LABS: ANION GAP 7 (5-19); BLOOD UREA NITROGEN 16 mg/dL (7-20); CALCIUM 8.6 mg/dL (8.4-10.2); CARBON DIOXIDE 22 mmol/L (22-30); CHLORIDE 99 mmol/L (98-107); GLUCOSE 138 mg/dL (75-110); POTASSIUM 4.4 mmol/L (3.6-5.0)
[2019-08-11] MEDS: METOPROLOL TARTRATE 25 MG TABLET PO SCH (11:18)
[2019-08-11] MEDS: SODIUM CHLORIDE 1 GM TABLET PO SCH ×3 (11:18→17:48)
[2019-08-11] MEDS: PANTOPRAZOLE SODIUM 20 MG TABLET.DR PO SCH ×2 (11:18→17:48)
[2019-08-11] MEDS: ISOSORBIDE MONONITRATE 30 MG TAB.ER.24H PO SCH (11:18)
[2019-08-11] MEDS ORDERED: TOLVAPTAN 15 MG TABLET PO ONE (12:00)
[2019-08-11] MEDS: DOXAZOSIN MESYLATE 4 MG TABLET PO SCH (12:13)
--- NOTE | 2019-08-11 12:49 | PDOC PROGRESS REPORT ---
Subjective Progress Note for:: 08/11/19 Subjective:: Patient was initially admitted for elective surgery for bilateral incarcerated inguinal hernia. He underwent laparoscopic bilateral inguinal hernia repair. Dr. Munguia called me this morning because he wanted to send the patient home today. However the patient sodium went down to 127.6 from 130 from yesterday. He was given a dose of tolvaptan product examiner of yesterday which improve his sodium level from 125-130. When I saw the patient, he was comfortably sitting at the edge of his bed. He denies any nausea, vomiting but admits some abdominal discomfort. He said he ate breakfast without any problems. He tells me now that he really does not drink much water. He has no other complaints otherwise. He is passing an adequate amount of urine. Reason For Visit: SMALL BOWEL MASS, HYPONATREMIA Physical Exam Vital Signs: Temp Pulse Resp BP Pulse Ox 97.9 F 65 18 123/56 L 97 08/11/19 07:07 08/11/19 07:07 08/11/19 07:07 08/11/19 07:07 08/11/19 07:07 Intake & Output 08/10/19 08/11/19 08/12/19 06:59 06:59 06:59 Intake Total 1297 5066 Output Total 2900 1160 Balance -1603 3906 Weight 65.1 kg 68.3 kg Exam: General appearance: PRESENT: no acute distress, cooperative, fairly-developed, fairly-nourished Head exam: PRESENT: atraumatic, normocephalic Eye exam: PRESENT: conjunctiva pale, PERRLA. ABSENT: scleral icterus Neck exam: ABSENT: JVD Respiratory exam: PRESENT: Normal breath sounds. ABSENT: crackles, rales, rhonchi, unlabored, wheezes Cardiovascular exam: PRESENT: Regular rate rhythm -+S1, +S2. ABSENT: diastolic murmur, systolic murmur GI/Abdominal exam: PRESENT: normal bowel sounds, soft. Slight discomfort on palpation ABSENT: guarding, mass, tenderness Extremities exam: ABSENT: No edema Neurological exam: PRESENT: alert, awake, oriented to person, place and time. Skin exam: PRESENT: dry, warm, Cardiovascular exam: PRESENT: +S1, +S2 GI/Abdominal exam: PRESENT: normal bowel sounds, soft. ABSENT: organomegaly, tenderness Results Laboratory Results: 08/11/19 05:15 04/10/20 05:15 08/11/19 08/11/19 05:15 05:15 WBC 5.5 RBC 2.81 L Hgb 8.9 L Hct 24.3 L MCV 86 MCH 31.7 MCHC 36.7 H RDW 14.0 Plt Count 111 L Seg Neutrophils % 82.3 H Sodium 127.6 L Potassium 4.4 Chloride 99 Carbon Dioxide 22 Anion Gap 7 BUN 16 Creatinine 1.06 Est GFR ( Amer) > 60 Glucose 138 H Calcium 8.6 Assessment & Plan - Diagnosis (1) Hyponatremia Is this a current diagnosis for this admission?: Yes Plan: During this admission the patient sodium has gone down to as low as 118 and was given hypertonic saline. It then went up to 125. He was given tolvaptan early with sodium level going up to 130. Today it is low again at 127.6. Patient denies drinking too much water. His serum osmolality was 255, and a urine osmolality of 353 and 339. He can very much have SIADH. There are no records of further sodium levels on this patient in this hospital prior to this hospitalization. Patient is unaware of any problem with sodium previously. He states that he follows up with his primary care provider at the [place]. He does not seem to have much symptoms attributed to hyponatremia at this time. Prior to discharge I would like his sodium to be at least 130 or better. I will give the patient another dose of tolvaptan 15 mg and repeat his basic metabolic panel later today. I told Dr. Munguia that if his sodium level is 6 130 or better that he can probably be discharged home. Patient needs to follow-up with his primary care provider and have a repeat basic metabolic panel in a week. If the primary care provider deems that is necessary to have nephrology consultation after follow-up then he can refer the patient to us but these needs to be approved by [facility]. - Time Time with patient: 15-25 minutes
[2019-08-11 15:36] LABS: A/G RATIO 1.5 (0.7-1.7); ALBUMIN 2 3.2 g/dL (2.9-4.4); ALPHA-2-GLOBULIN 2 0.5 g/dL (0.4-1.0); BETA GLOBULINS 0.7 g/dL (0.7-1.3); GAMMA GLOBULIN 0.9 g/dL (0.4-1.8); GLOBULIN TOTAL 2.2 g/dL (2.2-3.9); MONOCLONAL SPIKE Not Observed g/dL (Not Observ); PROTEIN TOTAL SERUM 5.4 g/dL (6.0-8.5)
[2019-08-11] MEDS: TAMSULOSIN HCL 0.4 MG CAP.SR.24H PO SCH (17:48)
[2019-08-11] MEDS: TRAMADOL HCL 50 MG TABLET PO PRN (18:40)
[2019-08-11 18:46] LABS: ANION GAP 9 (5-19); BLOOD UREA NITROGEN 14 mg/dL (7-20); CALCIUM 8.8 mg/dL (8.4-10.2); CARBON DIOXIDE 21 mmol/L (22-30); CHLORIDE 97 mmol/L (98-107); GLUCOSE 143 mg/dL (75-110); POTASSIUM 4.3 mmol/L (3.6-5.0)
[2019-08-12 05:59] LABS: ANION GAP 6 (5-19); BLOOD UREA NITROGEN 13 mg/dL (7-20); CALCIUM 8.7 mg/dL (8.4-10.2); CARBON DIOXIDE 21 mmol/L (22-30); CHLORIDE 100 mmol/L (98-107); GLUCOSE 104 mg/dL (75-110); POTASSIUM 4.4 mmol/L (3.6-5.0)
[2019-08-12] MEDS ORDERED: TOLVAPTAN 15 MG TABLET PO ONE (07:30)
--- NOTE | 2019-08-12 08:11 | PDOC DISCHARGE SUMMARY ---
General - Admit/Disc Date/PCP Admission Date/Primary Care Provider: 08/08/19 08:[facility] Discharge Date: 08/11/19 - Discharge Diagnosis Final Diagnosis: incarcerated bilateral inguinal hernias iwth partial sbo - Assessment Summary: Mr. Spivey is a 68-year-old male who initially presented as an outpatient with chronic lower abdominal pain and an incomplete small bowel obstruction. CT scan was obtained as an outpatient which showed a questionable distal ileal mass versus stricture and large bilateral inguinal hernias. Plans were made for a bilateral inguinal hernia repair and a diagnostic laparoscopy. He was admitted on the day of scheduled surgery however he was noted to have a low sodium in the 125 range which dropped subsequently to the 119 range on recheck. Surgery was canceled he was admitted to the hospital and cared for by Dr. Nascimento from medicine who corrected his serum sodium level and obtain a consultation from Dr. Sravan Nicholson from nephrology. Sodium was improved to 130 and he was taken to surgery yesterday on 09 August where he underwent a diagnostic laparoscopy and bilateral inguinal hernia repair. The following day on postop day 1 he was doing well he was able to void normally he was tolerating a regular diet and his wounds were clean and dry. However on repeat labs his serum sodium was 127. Consultation was again made with nephrology who suggested that he not be discharged home until his sodium is greater than or equal to 130 and nephrology is going to see him today for further evaluation. Nephrology will see the patient today and current plans are to give the patient another dose of tolvaptan. If the patient's sodium on recheck is greater than 130 could be discharged home today with a follow-up with his primary doctor to follow-up on his hyponatremia. Patient is okay for discharge from surgical standpoint to home with follow-up with his primary MD after recheck of his sodium this afternoon. - Additional Information Resuscitation Status: Full Code Discharge Diet: As Tolerated Discharge Activity: No Lifting Over 10 Pounds Referrals: ANNETTE DAHL MD [ACTIVE STAFF] - 08/18/19 8:00 am Prescriptions: Tramadol HCl [Ultram 50 mg Tablet] 50 mg PO ASDIR PRN #20 tablet PRN Reason: Home Medications: Clopidogrel Bisulfate [Clopidogrel] 75 mg PO DAILY 06/08/19 Isosorbide Mononitrate [Imdur 30 mg Tablet.er] 30 mg PO DAILY 06/08/19 Meloxicam [Qmiiz Odt] 15 mg PO DAILY 06/08/19 Metoprolol Tartrate [Lopressor] 50 mg PO DAILY 06/08/19 Omeprazole 20 mg PO BID 06/08/19 Potassium Chloride 10 meq PO BID 06/08/19 Terazosin HCl 10 mg PO DAILY 06/08/19 Tramadol HCl [Ultram 50 mg Tablet] 50 mg PO ASDIR PRN #20 tablet 08/12/19 History of Present Illiness History of Present Illness: JUANA SPIVEY is a 68 year old male Physical Exam Vital Signs: Temp Pulse Resp BP Pulse Ox 97.9 F 65 18 123/56 L 97 08/11/19 07:07 08/11/19 07:07 08/11/19 07:07 08/11/19 07:07 08/11/19 07:07 Intake & Output 08/10/19 08/11/19 08/12/19 06:59 06:59 06:59 Intake Total 1297 5066 Output Total 2900 1160 Balance -1603 3906 Weight 65.1 kg 68.3 kg Results Laboratory Results: WBC 5.5 10^3/uL (4.0-10.5) 08/11/19 05:15 RBC 2.81 10^6/uL (4.35-5.55) L 08/11/19 05:15 Hgb 8.9 g/dL (13.5-17.0) L 08/11/19 05:15 Hct 24.3 % (37.9-51.0) L 08/11/19 05:15 MCV 86 fl (80-97) 08/11/19 05:15 MCH 31.7 pg (27.0-33.4) 08/11/19 05:15 MCHC 36.7 g/dL (32.0-36.0) H 08/11/19 05:15 RDW 14.0 % (11.5-14.0) 08/11/19 05:15 Plt Count 111 10^3/uL (150-450) L 08/11/19 05:15 Lymph % (Auto) 9.3 % (13-45) L 08/11/19 05:15 [place] % (Auto) 8.2 % (3-13) 08/11/19 05:15 Eos % (Auto) 0.1 % (0-6) 08/11/19 05:15 Baso % (Auto) 0.1 % (0-2) 08/11/19 05:15 Reticulocyte # 0.020 10^6/uL (0.028-0.122) L 08/10/19 05:34 Absolute Neuts (auto) 4.6 10^3/uL (1.7-8.2) 08/11/19 05:15 Absolute Lymphs (auto) 0.5 10^3/uL (0.5-4.7) 08/11/19 05:15 Absolute Monos (auto) 0.5 10^3/uL (0.1-1.4) 08/11/19 05:15 Absolute Eos (auto) 0.0 10^3/uL (0.0-0.6) 08/11/19 05:15 Absolute Basos (auto) 0.0 10^3/uL (0.0-0.2) 08/11/19 05:15 Seg Neutrophils % 82.3 % (42-78) H 08/11/19 05:15 Retic Count (auto) 0.66 % (0.66-2.85) 08/10/19 05:34 Sodium 127.6 mmol/L (137-145) L 08/11/19 05:15 Potassium 4.4 mmol/L (3.6-5.0) 08/11/19 05:15 Chloride 99 mmol/L (98-107) 08/11/19 05:15 Carbon Dioxide 22 mmol/L (22-30) 08/11/19 05:15 Anion Gap 7 (5-19) 08/11/19 05:15 BUN 16 mg/dL (7-20) 08/11/19 05:15 Creatinine 1.06 mg/dL (0.52-1.25) 08/11/19 05:15 Est GFR ( Amer) > 60 (>60) 08/11/19 05:15 Est GFR (MDRD) Non-Af > 60 (>60) 08/11/19 05:15 Glucose 138 mg/dL (75-110) H 08/11/19 05:15 POC Glucose 87 mg/dL (70-110) 08/10/19 09:09 Serum Osmolality 255 mOsm/kg (275-301) L 08/08/19 06:26 Calcium 8.6 mg/dL (8.4-10.2) 08/11/19 05:15 Iron 109.2 ug/dL (49-181) 08/10/19 05:34 TIBC 206 ug/dL (250-450) L 08/10/19 05:34 % Saturation 53 % 08/10/19 05:34 Ferritin 323.00 ng/mL (17.9-464.0) 08/10/19 05:34 Total Bilirubin 0.9 mg/dL (0.2-1.3) 08/08/19 16:44 Direct Bilirubin 0.0 mg/dL (0.0-0.4) 08/08/19 16:44 Neonat Total Bilirubin Not Reportable 08/08/19 16:44 Neonat Direct Bilirubin Not Reportable 08/08/19 16:44 Neonat Indirect Bili Not Reportable 08/08/19 16:44 AST 21 U/L (17-59) 08/08/19 16:44 ALT 9 U/L (<50) 08/08/19 16:44 Alkaline Phosphatase 50 U/L (38-126) 08/08/19 16:44 Total Protein 6.0 g/dL (6.3-8.2) L 08/08/19 16:44 Albumin 3.1 g/dL (3.5-5.0) L 08/08/19 16:44 Triglycerides 39 mg/dL (<150) 08/08/19 06:26 Cholesterol 96.46 mg/dL (0-200) 08/08/19 06:26 LDL Cholesterol Direct 39 mg/dL (<100) 08/08/19 06:26 VLDL Cholesterol 8.0 mg/dL (10-31) L 08/08/19 06:26 HDL Cholesterol 48 mg/dL (>40) 08/08/19 06:26 Vitamin B12 285.0 pg/mL (239-931) 08/10/19 05:34 Folate 5.94 ng/mL (>2.76) 08/10/19 05:34 TSH 3.66 uIU/mL (0.47-4.68) 08/08/19 06:26 Cortisol AM Sample 16.80 ug/dL (4.46-22.7) 08/08/19 06:26 Urine Osmolality 339 mOsm/kg (300-900) 08/09/19 22:46 Urine Creatinine 151.9 mg/dL (22-328) 08/08/19 13:10 Urine Sodium 94 mmol/L (30-90) H 08/09/19 22:46
[2019-08-12] MEDS: SODIUM CHLORIDE 1 GM TABLET PO SCH ×3 (10:35→17:13)
[2019-08-12] MEDS: METOPROLOL TARTRATE 25 MG TABLET PO SCH (10:36)
[2019-08-12] MEDS: DOXAZOSIN MESYLATE 4 MG TABLET PO SCH (10:36)
[2019-08-12] MEDS: ISOSORBIDE MONONITRATE 30 MG TAB.ER.24H PO SCH (10:36)
[2019-08-12] MEDS: PANTOPRAZOLE SODIUM 20 MG TABLET.DR PO SCH ×2 (10:37→17:13)
[2019-08-12] MEDS: TRAMADOL HCL 50 MG TABLET PO PRN ×2 (10:42→17:19)
--- NOTE | 2019-08-12 13:51 | PDOC PROGRESS REPORT ---
Subjective Progress Note for:: 08/12/19 Subjective:: Patient seems to be doing well. Currently asymptomatic in terms of his hyponatremia. Denies any confusion and no obvious evidence of any encephalopathy. Reason For Visit: SMALL BOWEL MASS, HYPONATREMIA Physical Exam Vital Signs: Temp Pulse Resp BP Pulse Ox 97.6 F 81 19 127/60 H 99 08/12/19 12:00 08/12/19 12:00 08/12/19 12:00 08/12/19 12:00 08/12/19 12:00 Intake & Output 08/11/19 08/12/19 08/13/19 06:59 06:59 06:59 Intake Total 5066 1700 Output Total 1160 650 Balance 3906 1050 Weight 68.3 kg 66.7 kg General appearance: PRESENT: no acute distress, cooperative, well-nourished. ABSENT: hard of hearing Neck exam: ABSENT: JVD Respiratory exam: PRESENT: unlabored. ABSENT: accessory muscle use, retraction, tachypnea, wheezes Extremities exam: ABSENT: pedal edema Musculoskeletal exam: PRESENT: ambulatory Neurological exam: PRESENT: alert, awake, oriented to person, oriented to place, oriented to time Psychiatric exam: ABSENT: agitated, anxious Focused psych exam: ABSENT: pressured speech Skin exam: ABSENT: jaundice Results Laboratory Results: 08/11/19 05:15 08/12/19 04:58 08/10/19 08/11/19 08/12/19 05:34 18:18 04:58 Sodium 126.8 L 127.4 L Potassium 4.3 4.4 Chloride 97 L 100 Carbon Dioxide 21 L 21 L Anion Gap 9 6 BUN 14 13 Creatinine 1.00 1.00 Est GFR ( Amer) > 60 > 60 Glucose 143 H 104 Calcium 8.8 8.7 Total Protein 5.4 L Albumin 3.2 Assessment and Plan - Diagnosis (1) Hyponatremia Is this a current diagnosis for this admission?: Yes Plan: Likely secondary to SIADH. However it may seem that patient current sodium level in the mid to upper 120s may simply be patient's reset Osmostat/baseline. TSH, a.m. cortisol within normal limits. No evidence of hypervolemia. Has been eating and hydrating adequately since hospitalization. BMP shows sodium of 127 today. Noted notes from consulting intern. Gave on the dose of tolvaptan today but repeat BMP at 4 PM is 126. Patient remains asymptomatic. This may be patient's set baseline and we do not have any prior records to evaluate sodium level prior to this hospitalization. No need to continue tolvaptan. As patient seems unresponsive, I will suggest having patient follow-up for repeat basic metabolic panel with his primary care provider in 1 week. I will sign off (2) Hyperkalemia Is this a current diagnosis for this admission?: Yes Plan: Secondary to oral consumption of potassium chloride supplements. Currently resolved after discontinuation of supplements. Patient should not be discharged on potassium supplements. - Time Time Spent with patient: Less than 15 minutes
[2019-08-12 16:21] LABS: ANION GAP 8 (5-19); BLOOD UREA NITROGEN 12 mg/dL (7-20); CALCIUM 8.6 mg/dL (8.4-10.2); CARBON DIOXIDE 22 mmol/L (22-30); CHLORIDE 96 mmol/L (98-107); GLUCOSE 123 mg/dL (75-110); POTASSIUM 4.3 mmol/L (3.6-5.0)
[2019-08-12] MEDS: TAMSULOSIN HCL 0.4 MG CAP.SR.24H PO SCH (17:13)
--- NOTE | 2019-08-12 17:57 | Progress Note ---
Provider Note Provider Note: Discussed case with Dr. Garcia via phone and she will like to try fluids through tonight as patient's lack of response to tolvaptan may be indicative of being dry. She would like patient to stay in the hospital for this and recheck BMP tomorrow. I have placed orders for NS at 100cc/hr to tomorrow. BMP order placed for AM. I will continue to follow patient tomorrow morning.
[2019-08-12] MEDS ORDERED: DOCUSATE SODIUM 100 MG CAPSULE PO SCH (18:00)
[2019-08-12] MEDS: NORMAL SALINE 1000 ML 1,000 ML IV PRN (18:13)
[2019-08-13] MEDS: NORMAL SALINE 1000 ML 1,000 ML IV PRN (04:00)
--- NOTE | 2019-08-13 05:52 | Progress Note ---
Provider Note Provider Note: Pt doing well from a surgical perspective. Awaiting medical/nephrology clearance for discharge.
[2019-08-13 06:33] LABS: ANION GAP 7 (5-19); BLOOD UREA NITROGEN 11 mg/dL (7-20); CALCIUM 8.7 mg/dL (8.4-10.2); CARBON DIOXIDE 21 mmol/L (22-30); CHLORIDE 100 mmol/L (98-107); GLUCOSE 99 mg/dL (75-110); POTASSIUM 4.3 mmol/L (3.6-5.0)
[2019-08-13] MEDS ORDERED: NORMAL SALINE 1000 ML 1,000 ML IV PRN (09:04)
[2019-08-13] MEDS ORDERED: NORMAL SALINE 1000 ML 300 ML IV ONE (09:04)
[2019-08-13] MEDS: ISOSORBIDE MONONITRATE 30 MG TAB.ER.24H PO SCH (09:37)
[2019-08-13] MEDS: DOXAZOSIN MESYLATE 4 MG TABLET PO SCH (09:37)
[2019-08-13] MEDS: METOPROLOL TARTRATE 25 MG TABLET PO SCH (09:38)
[2019-08-13] MEDS: PANTOPRAZOLE SODIUM 20 MG TABLET.DR PO SCH (09:38)
--- NOTE | 2019-08-13 12:01 | RADIOLOGY REPORT (SQ) ---
EXAM DESCRIPTION: CHEST 2 VIEWS IMAGES COMPLETED DATE/TIME: 08/13/2019 10:59 am REASON FOR STUDY: siadh. ?lung etiology COMPARISON: None. EXAM PARAMETERS: NUMBER OF VIEWS: two views TECHNIQUE: Digital Frontal and Lateral radiographic views of the chest acquired. RADIATION DOSE: NA LIMITATIONS: none FINDINGS: LUNGS AND PLEURA: No opacities, masses or pneumothorax. No pleural effusion. MEDIASTINUM AND HILAR STRUCTURES: No masses or contour abnormalities. HEART AND VASCULAR STRUCTURES: Heart normal size. No evidence for failure. BONES: No acute findings. HARDWARE: None in the chest. OTHER: Possible air under the right diaphragm versus colonic interposition. IMPRESSION: Possible free air. Correlate clinically with any recent surgery. Consider left decubit us view centered over diaphragm to assess if no recent surgery. TECHNICAL DOCUMENTATION: JOB ID: [id number] 2010 [employer]- All Rights Reserved Reading location - IP/workstation name: [email or web address]
[2019-08-13 12:21] VITALS: BP 103/49
[2019-08-13 13:25] LABS: ANION GAP 9 (5-19); BLOOD UREA NITROGEN 12 mg/dL (7-20); CALCIUM 8.2 mg/dL (8.4-10.2); CARBON DIOXIDE 19 mmol/L (22-30); CHLORIDE 100 mmol/L (98-107); GLUCOSE 118 mg/dL (75-110); POTASSIUM 4.2 mmol/L (3.6-5.0)
--- NOTE | 2019-08-13 13:33 | PDOC PROGRESS REPORT ---
Subjective Progress Note for:: 08/13/19 Subjective:: feels well, eating ok no pain Reason For Visit: SMALL BOWEL MASS, HYPONATREMIA Physical Exam Vital Signs: Temp Pulse Resp BP Pulse Ox 97.5 F 63 16 103/49 L 97 08/13/19 12:00 08/13/19 12:00 08/13/19 12:00 08/13/19 12:00 08/13/19 12:00 Intake & Output 08/12/19 08/13/19 08/14/19 06:59 06:59 06:59 Intake Total 1700 1958 240 Output Total 650 1375 Balance 1050 583 240 Weight 66.7 kg 67.5 kg General appearance: PRESENT: no acute distress Head exam: PRESENT: normocephalic Eye exam: PRESENT: EOMI Ear exam: PRESENT: normal external ear exam Mouth exam: PRESENT: moist Neck exam: PRESENT: full ROM Respiratory exam: PRESENT: clear to auscultation luly Cardiovascular exam: PRESENT: RRR Pulses: PRESENT: normal radial pulses, normal femoral pulses Breast: PRESENT: Normal GI/Abdominal exam: PRESENT: soft Rectal exam: PRESENT: deferred Gentrourinary exam: PRESENT: scrotal swelling, other - Ecchymosis s over the penis and the scrotum from the previous laparoscopic hernia repair. Musculoskeletal exam: PRESENT: ambulatory Neurological exam: PRESENT: alert, awake, oriented to place Psychiatric exam: PRESENT: appropriate affect Skin exam: PRESENT: dry Results Laboratory Results: 08/11/19 05:15 08/13/19 12:58 08/12/19 08/13/19 08/13/19 15:53 05:51 12:58 Sodium 125.9 L 127.6 L 127.6 L Potassium 4.3 4.3 4.2 Chloride 96 L 100 100 Carbon Dioxide 22 21 L 19 L Anion Gap 8 7 9 BUN 12 11 12 Creatinine 1.02 0.99 0.94 Est GFR ( Amer) > 60 > 60 > 60 Glucose 123 H 99 118 H Calcium 8.6 8.7 8.2 L Impressions: Chest X-Ray 08/13/19 00:00 IMPRESSION: Possible free air. Correlate clinically with any recent surgery. Consider left decubitus view centered over diaphragm to assess if no recent surgery. Assessment & Plan - Plan Summary Plan Summary: Impression, status post diagnostic laparoscopy and bilateral inguinal hernia repairs from incarcerated inguinal hernia Hyponatremia. Free air seen on the chest x-ray days consistent with a the diagnostic laparoscopy as patient has no abdominal pain tolerating a regular diet and has normal bowel function
--- NOTE | 2019-08-13 14:10 | PDOC PROGRESS REPORT ---
Subjective Progress Note for:: 08/20/19 Subjective:: Patient doing well today. He has no complaints and is very eager to go home. States that he is tired of staying in the hospital. Reason For Visit: SMALL BOWEL MASS, HYPONATREMIA Physical Exam Vital Signs: Temp Pulse Resp BP Pulse Ox 97.5 F 63 16 103/49 L 97 08/13/19 12:00 08/13/19 12:00 08/13/19 12:00 08/13/19 12:00 08/13/19 12:00 Intake & Output 08/12/19 08/13/19 08/14/19 06:59 06:59 06:59 Intake Total 1700 1958 240 Output Total 650 1375 Balance 1050 583 240 Weight 66.7 kg 67.5 kg General appearance: PRESENT: no acute distress, cooperative Neck exam: ABSENT: JVD Respiratory exam: PRESENT: accessory muscle use, symmetrical, unlabored. ABSENT: tachypnea, wheezes Cardiovascular exam: PRESENT: RRR, +S1, +S2. ABSENT: tachycardia GI/Abdominal exam: PRESENT: soft. ABSENT: rebound, rigid, tenderness Neurological exam: PRESENT: alert, awake, oriented to person, oriented to place, oriented to time, oriented to situation Results Laboratory Results: 08/11/19 05:15 08/13/19 12:58 08/12/19 08/13/19 08/13/19 15:53 05:51 12:58 Sodium 125.9 L 127.6 L 127.6 L Potassium 4.3 4.3 4.2 Chloride 96 L 100 100 Carbon Dioxide 22 21 L 19 L Anion Gap 8 7 9 BUN 12 11 12 Creatinine 1.02 0.99 0.94 Est GFR ( Amer) > 60 > 60 > 60 Glucose 123 H 99 118 H Calcium 8.6 8.7 8.2 L Impressions: Chest X-Ray 08/13/19 00:00 IMPRESSION: Possible free air. Correlate clinically with any recent surgery. Consider left decubitus view centered over diaphragm to assess if no recent surgery. Assessment and Plan - Diagnosis (1) Hyponatremia Is this a current diagnosis for this admission?: Yes Plan: Minimal response to tolvaptan and hydration yesterday and no response to continued Saline hydration today. Sodium chloride tablets and fluid restriction have also not been of any help. Patient continues to remain asymptomatic. Vitals are stable. TSH, a.m. cortisol within normal limits. No evidence of hypervolemia. Has been eating adequately since hospitalization. CXR unimpressive. [facility] but no one was available. Also contacted [facility] where pt had stent placed but no recent visits for patient. Sodium maintaining in the mid to upper 120s and seems to be stable. As patient seems unresponsive to these therapies, I believe this may be patient's Reset Osmostat/baseline. I will suggest having patient follow-up for repeat basic metabolic panel with his primary care provider in 1 week. I will sign off (2) Hyperkalemia Is this a current diagnosis for this admission?: Yes Plan: Secondary to oral consumption of potassium chloride supplements. Currently resolved after discontinuation of supplements. Patient should not be discharged on potassium supplements. - Time Time Spent with patient: 15-24 minutes
--- NOTE | 2019-08-13 16:01 | PDOC DISCHARGE SUMMARY ---
General - Admit/Disc Date/PCP Admission Date/Primary Care Provider: 08/08/19 08:[facility] Discharge Date: 08/13/19 - Discharge Diagnosis Final Diagnosis: bilateral inguinal hernias and hyponatremia - Assessment Summary: Mr. Spivey is a 68-year-old male who initially presented as an outpatient with chronic lower abdominal pain and an incomplete small bowel obstruction. CT scan was obtained as an outpatient which showed a questionable distal ileal mass versus stricture and large bilateral inguinal hernias. Plans were made for a bilateral inguinal hernia repair and a diagnostic laparoscopy. He was admitted on the day of scheduled surgery however he was noted to have a low sodium in the 125 range which dropped subsequently to the 119 range on recheck. Surgery was canceled he was admitted to the hospital and cared for by Dr. Nascimento from medicine who corrected his serum sodium level and obtain a consultation from Dr. Sravan Nicholson from nephrology. Sodium was improved to 130 and he was taken to surgery yesterday on 09 August where he underwent a diagnostic laparoscopy and bilateral inguinal hernia repair. The following day on postop day 1 he was doing well he was able to void normally he was tolerating a regular diet and his wounds were clean and dry. However on repeat labs his serum sodium was 127. Consultation was again made with nephrology who suggested that he not be discharged home until his sodium is greater than or equal to 130 and nephrology is going to see him today for further evaluation. Nephrology will see the patient today and current plans are to give the patient another dose of tolvaptan. If the patient's sodium on recheck is greater than 130 could be discharged home today with a follow-up with his primary doctor to follow-up on his hyponatremia. Patient is okay for discharge from surgical standpoint to home with follow-up with his primary MD after recheck of his sodium this afternoon. - Additional Information Resuscitation Status: Full Code Discharge Diet: As Tolerated Discharge Activity: Activity As Tolerated, Balance Activity w/Rest, No Driving, No Lifting Over 10 Pounds, No Lifting/Push/Pulling, No tub bath Referrals: [facility] [Provider Group] (F/U WITH YOUR PRIMARY CARE DOCTOR TO RECHECK SODIUM IN 2 WEEKS) ANNETTE DAHL MD [ACTIVE STAFF] - 08/18/19 8:00 am Prescriptions: Tramadol HCl [Ultram 50 mg Tablet] 50 mg PO ASDIR PRN #20 tablet PRN Reason: Home Medications: Clopidogrel Bisulfate [Clopidogrel] 75 mg PO DAILY 06/08/19 Isosorbide Mononitrate [Imdur 30 mg Tablet.er] 30 mg PO DAILY 06/08/19 Meloxicam [Qmiiz Odt] 15 mg PO DAILY 06/08/19 Metoprolol Tartrate [Lopressor] 50 mg PO DAILY 06/08/19 Omeprazole 20 mg PO BID 06/08/19 Potassium Chloride 10 meq PO BID 06/08/19 Terazosin HCl 10 mg PO DAILY 06/08/19 Tramadol HCl [Ultram 50 mg Tablet] 50 mg PO ASDIR PRN #20 tablet 08/12/19 History of Present Illiness History of Present Illness: JUANA SPIVEY is a 68 year old male Physical Exam Vital Signs: Temp Pulse Resp BP Pulse Ox 97.5 F 63 16 103/49 L 97 08/13/19 14:35 08/13/19 14:35 08/13/19 14:35 08/13/19 14:35 08/13/19 14:35 Intake & Output 08/12/19 08/13/19 08/14/19 06:59 06:59 06:59 Intake Total 1700 1958 240 Output Total 650 1375 Balance 1050 583 240 Weight 66.7 kg 67.5 kg Results Laboratory Results: WBC 5.5 10^3/uL (4.0-10.5) 08/11/19 05:15 RBC 2.81 10^6/uL (4.35-5.55) L 08/11/19 05:15 Hgb 8.9 g/dL (13.5-17.0) L 08/11/19 05:15 Hct 24.3 % (37.9-51.0) L 08/11/19 05:15 MCV 86 fl (80-97) 08/11/19 05:15 MCH 31.7 pg (27.0-33.4) 08/11/19 05:15 MCHC 36.7 g/dL (32.0-36.0) H 08/11/19 05:15 RDW 14.0 % (11.5-14.0) 08/11/19 05:15 Plt Count 111 10^3/uL (150-450) L 08/11/19 05:15 Lymph % (Auto) 9.3 % (13-45) L 08/11/19 05:15 [place] % (Auto) 8.2 % (3-13) 08/11/19 05:15 Eos % (Auto) 0.1 % (0-6) 08/11/19 05:15 Baso % (Auto) 0.1 % (0-2) 08/11/19 05:15 Reticulocyte # 0.020 10^6/uL (0.028-0.122) L 08/10/19 05:34 Absolute Neuts (auto) 4.6 10^3/uL (1.7-8.2) 08/11/19 05:15 Absolute Lymphs (auto) 0.5 10^3/uL (0.5-4.7) 08/11/19 05:15 Absolute Monos (auto) 0.5 10^3/uL (0.1-1.4) 08/11/19 05:15 Absolute Eos (auto) 0.0 10^3/uL (0.0-0.6) 08/11/19 05:15 Absolute Basos (auto) 0.0 10^3/uL (0.0-0.2) 08/11/19 05:15 Seg Neutrophils % 82.3 % (42-78) H 08/11/19 05:15 Retic Count (auto) 0.66 % (0.66-2.85) 08/10/19 05:34 Sodium 127.6 mmol/L (137-145) L 08/13/19 12:58 Potassium 4.2 mmol/L (3.6-5.0) 08/13/19 12:58 Chloride 100 mmol/L (98-107) 08/13/19 12:58 Carbon Dioxide 19 mmol/L (22-30) L 08/13/19 12:58 Anion Gap 9 (5-19) 08/13/19 12:58 BUN 12 mg/dL (7-20) 08/13/19 12:58 Creatinine 0.94 mg/dL (0.52-1.25) 08/13/19 12:58 Est GFR ( Amer) > 60 (>60) 08/13/19 12:58 Est GFR (MDRD) Non-Af > 60 (>60) 08/13/19 12:58 Glucose 118 mg/dL (75-110) H 08/13/19 12:58 POC Glucose 87 mg/dL (70-110) 08/10/19 09:09 Serum Osmolality 255 mOsm/kg (275-301) L 08/08/19 06:26 Calcium 8.2 mg/dL (8.4-10.2) L 08/13/19 12:58 Iron 109.2 ug/dL (49-181) 08/10/19 05:34 TIBC 206 ug/dL (250-450) L 08/10/19 05:34 % Saturation 53 % 08/10/19 05:34 Ferritin 323.00 ng/mL (17.9-464.0) 08/10/19 05:34 Total Bilirubin 0.9 mg/dL (0.2-1.3) 08/08/19 16:44 Direct Bilirubin 0.0 mg/dL (0.0-0.4) 08/08/19 16:44 Neonat Total Bilirubin Not Reportable 08/08/19 16:44 Neonat Direct Bilirubin Not Reportable 08/08/19 16:44 Neonat Indirect Bili Not Reportable 08/08/19 16:44 AST 21 U/L (17-59) 08/08/19 16:44 ALT 9 U/L (<50) 08/08/19 16:44 Alkaline Phosphatase 50 U/L (38-126) 08/08/19 16:44 Total Protein 5.4 g/dL (6.0-8.5) L 08/10/19 05:34 Albumin 3.2 g/dL (2.9-4.4) 08/10/19 05:34 Globulin 2.2 g/dL (2.2-3.9) 08/10/19 05:34 Albumin/Globulin Ratio 1.5 (0.7-1.7) 08/10/19 05:34 Kywij-3-Tblpawvdw 0.2 g/dL (0.0-0.4) 08/10/19 05:34 Beta Globulins 0.7 g/dL (0.7-1.3) 08/10/19 05:34 Gamma Globulins 0.9 g/dL (0.4-1.8) 08/10/19 05:34 M-Jayro Not Observed g/dL (Not Observ) 08/10/19 05:34 PEP Note Comment (.) 08/10/19 05:34 PEP Interpretation Comment (.) 08/10/19 05:34 Triglycerides 39 mg/dL (<150) 08/08/19 06:26 Cholesterol 96.46 mg/dL (0-200) 08/08/19 06:26 LDL Cholesterol Direct 39 mg/dL (<100) 08/08/19 06:26 VLDL Cholesterol 8.0 mg/dL (10-31) L 08/08/19 06:26 HDL Cholesterol 48 mg/dL (>40) 08/08/19 06:26 Vitamin B12 285.0 pg/mL (239-931) 08/10/19 05:34 Folate 5.94 ng/mL (>2.76) 08/10/19 05:34 TSH 3.66 uIU/mL (0.47-4.68) 08/08/19 06:26 Cortisol AM Sample 16.80 ug/dL (4.46-22.7) 08/08/19 06:26 Urine Osmolality 339 mOsm/kg (300-900) 08/09/19 22:46 Urine Creatinine 151.9 mg/dL (22-328) 08/08/19 13:10 Urine Sodium 94 mmol/L (30-90) H 08/09/19 22:46 Ngnnc-1-Mlmcgzxpj ASHLI 0.5 g/dL (0.4-1.0) 08/10/19 05:34 Impressions: Chest X-Ray 08/13/19 00:00 IMPRESSION: Possible free air. Correlate clinically with any recent surgery. Consider left decubitus view centered over diaphragm to assess if no recent surgery.
== END 2019-08-13 15:42 | disposition home or self-care (01) | DRG 351 ==
LOC: OROUT 05:53 → INOR 08:01 → 4N 08:47 → 3S 20:30 → 4N 08-10 14:41
PROVIDERS: ADMIT Surgery; ATTEND Surgery
PROC: 0WJF4ZZ Inspection of Abdominal Wall, Percutaneous Endoscopic Approach (ICD-10-PCS; 2019-08-08)
PROC: 0YUA4JZ Supplement Bilateral Inguinal Region with Synthetic Substitute, Percutaneous Endoscopic Approach (ICD-10-PCS; principal; 2019-08-10 10:15)
DX: K40.30 Unilateral inguinal hernia, with obstruction, without gangrene, not specified as recurrent (principal); E87.1 Hypo-osmolality and hyponatremia; N17.9 Acute kidney failure, unspecified; K40.90 Unilateral inguinal hernia, without obstruction or gangrene, not specified as recurrent; E87.5 Hyperkalemia; R00.1 Bradycardia, unspecified; Z79.02 Long term (current) use of antithrombotics/antiplatelets; F17.228 Nicotine dependence, chewing tobacco, with other nicotine-induced disorders; Z95.5 Presence of coronary angioplasty implant and graft; Z96.652 Presence of left artificial knee joint; Z79.82 Long term (current) use of aspirin
CPT/HCPCS: 36415; 71046; 80048; 80061; 82533; 82570; 82607; 82728; 82746; 82962; 83540; 83550; 83930; 83935; 840; 84165; 84300; 84443; 85025; 85027; 85045; 87070; 93005; 93010; 94799; A9270-GY; C1713; C1781; C9290; J0330; J0690; J1100; J1170; J2250; J2370; J2405; J2704; J3010; J3490; J7030; S0028

== ENCOUNTER 2019-08-14 10:15 | Observation (INO) | payer OTHER, MEDICARE ==
--- NOTE | 2019-08-14 11:25 | ER Document Report ---
Entered by MICHELLE NDIAYE SCRIBE 08/14/19 1103 Acting as scribe for:ALEX HA MD ED GI/ - General Chief Complaint: Urinary Incontinence Stated Complaint: URINARY Time Seen by Provider: 08/14/19 11:02 Primary Care Provider: DAVE,ANTOLIN [Primary Care Provider] - Follow up as needed Mode of Arrival: Ambulatory Information source: Patient Notes: This 68 year old male patient presents to the emergency department today with complaints of being "unable to hold his water". Patient states that he had a right inguinal hernia repaired on 08/10/2019, and was discharged yesterday (08/13/2019). Patient describes what sounds like incontinence while at the hospital, but having a urinal right beside the bed here made it manageable. Patient describes having to urinate yesterday when getting home but before he was able to get to the bathroom he urinated on himself. Patient does not not describe any real burning on urination. He does have a past medical history of BPH. TRAVEL OUTSIDE OF THE [place] IN LAST 30 DAYS: No - Related Data Allergies/Adverse Reactions: No Known Allergies Allergy (Verified 08/14/19 10:31) Home Medications: pt reports no changes since discharge inpt here yesterday. Past Medical History - General Information source: Patient - Social History Smoking Status: Never Smoker Cigarette use (# per day): No Chew tobacco use (# tins/day): No Frequency of alcohol use: None Drug Abuse: None Lives with: Family Family History: Reviewed & Not Pertinent, Hypertension, Malignancy Patient has suicidal ideation: No Patient has homicidal ideation: No - Past Medical History Cardiac Medical History: Reports: Hx Coronary Artery Disease, Hx Hypertension Past Surgical History: Reports: Hx Cardiac Catheterization - 2 stents, Hx Cholecystectomy, Hx Coronary Stent - x2, Hx Herniorrhaphy - right inguinal, Hx Orthopedic Surgery - Lt Hip - Immunizations Hx Diphtheria, Pertussis, Tetanus Vaccination: - UNKNOWN Hx Pneumococcal Vaccination: 08/31/18 Review of Systems - Review of Systems Constitutional: No symptoms reported EENT: No symptoms reported Cardiovascular: No symptoms reported Respiratory: No symptoms reported Gastrointestinal: No symptoms reported Genitourinary: See HPI, Burning, Urgency Male Genitourinary: No symptoms reported Musculoskeletal: No symptoms reported Skin: No symptoms reported Hematologic/Lymphatic: No symptoms reported Neurological/Psychological: No symptoms reported -: Yes All other systems reviewed and negative Physical Exam - Notes Notes: Physical Exam: General: Alert, very pale. HEENT: Normocephalic. Atraumatic. PERRL. Extraocular movements intact. Oropharynx clear. Skin is pale, conjunctiva is pale. Neck: Supple. Non-tender. Respiratory: No respiratory distress. Clear and equal breath sounds bilaterally. Cardiovascular: Regular rate and rhythm. Abdominal: Midline laparoscopy wounds are healing. There does seem to be some fullness and discomfort in the infraumbilical pelvis which may be a distended bladder. Will have a Rodrigues catheter placed to decompress the bladder and then reevaluate. Rectal: Enlarged prostate. Brown liquid stool. Heme-negative stool. Back: No gross abnormalities. Extremities: Moves all four extremities. Upper extremities: Nailbeds are pale. Normal ROM. Lower extremities: 2+ pitting edema to lower extremities. Patient reports that he does swell from time to time and is not sure if this is normal for him or not. Neurological: Normal cognition. AAOx4. Normal speech. Psychological: Normal affect. Normal Mood. Skin: Warm. Dry. Pale color. Course - Laboratory Result Diagrams: 08/14/19 11:55 08/14/19 11:55 Laboratory results interpreted by me: 08/14/19 08/14/19 11:55 11:55 RBC 2.19 L Hgb 6.9 L Hct 19.3 L MCHC 36.1 H RDW 14.2 H Plt Count 132 L Lymph % (Auto) 10.7 L Absolute Lymphs (auto) 0.4 L Seg Neutrophils % 79.2 H Sodium 127.9 L Creatinine 1.30 H Est GFR (MDRD) Non-Af 55 L Calcium 8.3 L Total Protein 5.8 L Albumin 2.9 L - Diagnostic Test Radiology reviewed: Image reviewed, Reports reviewed - Noncontrast CT scan abdomen pelvis shows inflammation along the right inguinal canal consistent with recent inguinal herniorrhaphy. There is a very large prostate gland. Rodrigues catheter is in place. Bladder is decompressed. There are no large fluid collections to explain the 2 g hemoglobin drop. - Consults Dr. Salgado Time consulted: 15:10 Consulted provider: other - Request the patient be admitted to the hospitalist service and he will consult. Dr. Onwe Time consulted: 15:24 Consulted provider: will come to ER - Observation admission, and obtain iron studies prior to transfusion. Discharge - Discharge Clinical Impression: Hyponatremia, Acute urinary retention, Acute renal insufficiency, Peripheral edema Anemia Qualifiers: Anemia type: unspecified type Qualified Code(s): D64.9 - Anemia, unspecified BPH (benign prostatic hyperplasia) Qualifiers: Lower urinary tract symptom presence: symptoms present Lower urinary tract symptom detail: urinary retention Qualified Code(s): N40.1 - Benign prostatic hyperplasia with lower urinary tract symptoms Condition: Stable Disposition: ADMITTED OBSERVATION Admitting Provider: Daniel (Hospitalist) Unit Admitted: Surgical Floor [facility] [[facility] - Follow up as needed I personally performed the services described in the documentation, reviewed and edited the documentation which was dictated to the scribe in my presence, and it accurately records my words and actions.
[2019-08-14 12:16] LABS: ABSOLUTE EOSINOPHILS # (AUTO) 0.1 10^3/uL (0.0-0.6); ABSOLUTE LYMPHOCYTES (AUTO) 0.4 10^3/uL (0.5-4.7); ABSOLUTE MONOCYTES (AUTO) 0.3 10^3/uL (0.1-1.4); ABSOLUTE NEUT (AUTO) 3.1 10^3/uL (1.7-8.2); BASOPHILS % (AUTO) 0.3 % (0-2); EOSINOPHILS % (AUTO) 1.8 % (0-6); HEMATOCRIT 19.3 % (37.9-51.0); LYMPHOCYTES % (AUTO) 10.7 % (13-45); MEAN CORPUSCULAR HEMOGLOBIN 31.8 pg (27.0-33.4); MEAN CORPUSCULAR HGB CONC 36.1 g/dL (32.0-36.0); MEAN CORPUSCULAR VOLUME 88 fl (80-97); PLATELET COUNT 132 10^3/uL (150-450); RED BLOOD COUNT 2.19 10^6/uL (4.35-5.55); RED CELL DISTRIBUTION WIDTH 14.2 % (11.5-14.0); SEGMENTED NEUTROPHILS % (AUTO) 79.2 % (42-78); TOTAL CELLS COUNTED % (AUTO) 100 %
[2019-08-14 12:19] LABS: APPEARANCE,URINE CLEAR; BILIRUBIN,URINE NEGATIVE (NEGATIVE); COLOR,URINE YELLOW; GLUCOSE, URINE NEGATIVE (NEGATIVE); HEMOGLOBIN 6.9 g/dL (13.5-17.0); KETONES,URINE NEGATIVE (NEGATIVE); LEUKOCYTE ESTERASE,URINE NEGATIVE (NEGATIVE); NITRITE,URINE NEGATIVE (NEGATIVE); PROTEIN,URINE NEGATIVE (NEGATIVE); URINE SPECIFIC GRAVITY 1.006; UROBILINOGEN,URINE NEGATIVE mg/dL (<2.0)
[2019-08-14 12:37] LABS: ALBUMIN 2.9 g/dL (3.5-5.0); ALKALINE PHOSPHATASE 46 U/L (38-126); ANION GAP 5 (5-19); ASPARTATE AMINO TRANSFERASE 27 U/L (17-59); BILIRUBIN,TOTAL 1.1 mg/dL (0.2-1.3); BLOOD UREA NITROGEN 14 mg/dL (7-20); CALCIUM 8.3 mg/dL (8.4-10.2); CARBON DIOXIDE 23 mmol/L (22-30); CHLORIDE 100 mmol/L (98-107); GLUCOSE 100 mg/dL (75-110); POTASSIUM 4.1 mmol/L (3.6-5.0); TOTAL PROTEIN 5.8 g/dL (6.3-8.2)
[2019-08-14 12:44] LABS: PROTHROMBIN TIME 14.2 SEC (11.4-15.4)
[2019-08-14] MEDS ORDERED: LIDOCAINE 2% URO-JET 5 ML KIT MM ONE (14:00)
[2019-08-14] MEDS ORDERED: NORMAL SALINE 250 ML IV PRN (15:30)
--- NOTE | 2019-08-14 15:47 | RADIOLOGY REPORT (SQ) ---
EXAM DESCRIPTION: CT ABD/PELVIS NO ORAL OR IV IMAGES COMPLETED DATE/TIME: 08/14/2019 1:45 pm REASON FOR STUDY: Postop pelvic hematoma? . Patient had a recent inguinal hernia repair with perito ruben repair intraoperatively. Dropping hemoglobin, worrisome for postoperative bleeding. Patient al so had urinary retention, now with Rodrigues catheter placement. COMPARISON: 05/17/2019. TECHNIQUE: CT scan of the abdomen and pelvis performed without intravenous or oral contrast. Images reviewed with lung, soft tissue, and bone windows. Reconstructed coronal and sagittal MPR images revi ewed. All images stored on PACS. All CT scanners at this facility use dose modulation, iterative reconstruction, and/or weight based d osing when appropriate to reduce radiation dose to as low as reasonably achievable (ALARA). [facility]: Dose Right [facility]: CareDose [facility]: Dose Right [facility]: Teradose 4D [facility]: [employer] RADIATION DOSE: CT Rad equipment meets quality standard of care and radiation dose reduction techniq ues were employed. CTDIvol: 5.7 mGy. DLP: 302 mGy-cm.mGy. LIMITATIONS: None. FINDINGS: LOWER CHEST: Atelectasis at the lung bases. No focal consolidation or pleural effusion. Trace pericardial effusion/ pericardial thickening, stable from previous. NON-CONTRASTED LIVER, SPLEEN, ADRENALS: Evaluation limited by lack of IV contrast. No identified sign ificant masses. PANCREAS: No masses. No peripancreatic inflammatory changes. GALLBLADDER: Surgically absent. RIGHT KIDNEY AND URETER: No suspicious masses. Assessment limited by lack of IV contrast. No signif icant calcifications. No hydronephrosis or hydroureter. LEFT KIDNEY AND URETER: No suspicious masses. Assessment limited by lack of IV contrast. No signifi cant calcifications. No hydronephrosis or hydroureter. AORTA AND RETROPERITONEUM: No aneurysm. No retroperitoneal mass or fluid. No adenopathy. Extensive atherosclerotic calcification. BOWEL AND PERITONEAL CAVITY: There is a moderate hiatal hernia. No bowel obstruction. Enteric contr ast is seen in the distal colon and rectum. No bowel wall thickening. Small amount of ascites. Sma ll amount of pneumoperitoneum predominantly in the nondependent anterior peritoneum, left anterior ab dominal wall, and adjacent to the right knee and liver. APPENDIX: Surgically absent. PELVIS, BLADDER, AND ABDOMINAL WALL:Rodrigues catheter within the urinary bladder. Iatrogenic intralumin al gas. Prostate gland is enlarged. BONES: Left hip arthroplasty partially visualized unchanged from prior. Spondylosis and degenerative disc disease in the thoracolumbar spine. No suspicious bone lesions. There is subcutaneous gas at the I am going to like and in the left lower quadrant abdomen. No subcutaneous fluid collection or e vidence of subcutaneous hematoma, retroperitoneal hematoma, or intramuscular hematoma. Asymmetric at rophy of the left iliopsoas muscle secondary to left hip arthroplasty, stable in appearance from prev ious examination. OTHER: No other significant finding. IMPRESSION: 1. Small amount of pneumoperitoneum and postoperative changes in the anterior abdominal wall and righ t groin, consistent with recent he hernia repair. There is a moderate right hydrocele in the scrotum . Findings are as expected for postoperative change. There is no retroperitoneal hematoma, peritone al abscess, or evidence of bowel obstruction. 2. Atelectasis at the lung bases. 3. Enlarged prostate gland. 4. Moderate hiatal hernia. COMMENT: Quality ID # [id number]: Final reports with documentation of one or more dose reduction techniques (e.g., Automated exposure control, adjustment of the mA and/or kV according to patient size, use of iterative reconstruction technique) TECHNICAL DOCUMENTATION: JOB ID: [id number] 2010 [employer]- All Rights Reserved Reading location - IP/workstation name: [email or web address]
[2019-08-14 16:00] LABS: IRON(TIBC) 28.5 ug/dL (49-181)
[2019-08-14 16:01] LABS: ABSOLUTE RETICS # 0.024 10^6/uL (0.028-0.122); RETICULOCYTE COUNT (AUTO) 1.08 % (0.66-2.85)
[2019-08-14] MEDS ORDERED: ACETAMINOPHEN 325 MG TABLET PO PRN (16:51)
[2019-08-14] MEDS ORDERED: TRAMADOL HCL 50 MG TABLET PO PRN (16:56)
[2019-08-14 17:07] LABS: FOLATE 5.25 ng/mL (>2.76)
--- NOTE | 2019-08-14 17:22 | PDOC H&P ---
History of Present Illness Admission Date/PCP: 08/14/19 15:39 [place] [facility] Patient complains of: Suprapubic pressure and distention History of Present Illness: JUANA SR is a 68 year old male who presented with complaints of suprapubic pressure and pain. Started yesterday. Also experiencing overflow incontinence. States that he noted that his suprapubic region was distended. Denies any radiation of the pain. Also notes some swelling and redness in his scrotum since the surgery was performed. Notably, patient was recently hospitalized for laparoscopic bilateral inguinal hernia repairs. Also treated for hyponatremia at the time. In the ER, patient was noted to be anemic. Surgery was consulted who requested admission by medical service. Abdominal CT revealed no intra- abdominal bleeding but did show enlarged prostate. Rodrigues was placed with sig nificant drainage of fluid and decompression of the bladder after which patient states that he currently feels a lot better. Past Medical History Cardiac Medical History: Reports: Coronary Artery Disease, Hypertension Denies: Myocardial Infarction Pulmonary Medical History: Denies: Asthma, Bronchitis, Chronic Obstructive Pulmonary Disease (COPD), Pneumonia Neurological Medical History: Denies: Seizures Endocrine Medical History: Denies: Diabetes Mellitus Type 1, Diabetes Mellitus Type 2 Musculoskeltal Medical History: Denies: Arthritis Psychiatric Medical History: Denies: Depression Hematology: Denies: Anemia Past Surgical History Past Surgical History: Reports: Cardiac Catheterization - 2 stents, Cholecystectomy, Coronary Stent - x2, Herniorrhaphy - right inguinal, Orthopedic Surgery - Lt Hip Social History Lives with: Family Smoking Status: Never Smoker Electronic Cigarette use?: No Frequency of Alcohol Use: None Hx Recreational Drug Use: No Hx Prescription Drug Abuse: No - Advance Directive Resuscitation Status: Full Code Family History Family History: Reviewed & Not Pertinent, Hypertension, Malignancy Parental Family History Reviewed: Yes Children Family History Reviewed: NA Sibling(s) Family History Reviewed.: NA Medication/Allergy Home Medications: Potassium Chloride 20 meq PO DAILY 06/08/19 Tramadol HCl [Ultram 50 mg Tablet] 50 mg PO TID 08/14/19 Allergies/Adverse Reactions: No Known Allergies Allergy (Verified 08/14/19 10:31) Review of Systems Constitutional: ABSENT: fatigue, fever(s) Eyes: ABSENT: visual disturbances Nose, Mouth, and Throat: ABSENT: headache(s) Cardiovascular: ABSENT: orthropnea Respiratory: ABSENT: cough, dyspnea Gastrointestinal: ABSENT: nausea, vomiting Genitourinary: PRESENT: nocturia, other - Decreased stream. ABSENT: dysuria Neurological: ABSENT: confusion Psychiatric: ABSENT: anxiety Endocrine: PRESENT: polyuria Allergic/Immunologic: ABSENT: seasonal rhinorrhea Physical Exam Vital Signs: Temp Pulse Resp BP Pulse Ox 97.7 F 72 110/49 L 100 08/14/19 10:22 08/14/19 10:22 08/14/19 10:22 08/14/19 10:22 Intake & Output 08/13/19 08/14/19 08/15/19 06:59 06:59 06:59 Weight 71.6 kg General appearance: PRESENT: no acute distress, cooperative Mouth exam: PRESENT: neck supple Neck exam: ABSENT: JVD Respiratory exam: PRESENT: clear to auscultation luly, unlabored Cardiovascular exam: PRESENT: +S1, +S2 GI/Abdominal exam: PRESENT: soft. ABSENT: distended, rebound, rigid, tenderness Gentrourinary exam: PRESENT: ecchymosis - Ecchymosis of the scrotal sacs, scrotal swelling, indwelling catheter Extremities exam: ABSENT: pedal edema Musculoskeletal exam: PRESENT: ambulatory Neurological exam: PRESENT: alert, awake, oriented to person, oriented to place, oriented to time, oriented to situation Psychiatric exam: ABSENT: agitated, anxious Results Laboratory Results: 08/14/19 11:55 08/14/19 11:55 08/14/19 08/14/19 08/14/19 11:55 11:55 11:55 WBC 4.0 RBC 2.19 L Hgb 6.9 L Hct 19.3 L MCV 88 MCH 31.8 MCHC 36.1 H RDW 14.2 H Plt Count 132 L Seg Neutrophils % 79.2 H Retic Count (auto) Sodium 127.9 L Potassium 4.1 Chloride 100 Carbon Dioxide 23 Anion Gap 5 BUN 14 Creatinine 1.30 H Est GFR ( Amer) > 60 Glucose 100 Calcium 8.3 L Iron TIBC % Saturation Ferritin Total Bilirubin 1.1 AST 27 Alkaline Phosphatase 46 Total Protein 5.8 L Albumin 2.9 L Urine Color YELLOW Urine Appearance CLEAR Urine pH 5.0 Ur Specific [place] 1.006 Urine Protein NEGATIVE Urine Glucose (UA) NEGATIVE Urine Ketones NEGATIVE Urine Blood NEGATIVE Urine Nitrite NEGATIVE Ur Leukocyte Esterase NEGATIVE Urine WBC (Auto) 1 Urine RBC (Auto) 1 Blood Type Antibody Screen 08/14/19 08/14/19 08/14/19 11:55 11:55 13:45 WBC RBC Hgb Hct MCV MCH MCHC RDW Plt Count Seg Neutrophils % Retic Count (auto) 1.08 Sodium Potassium Chloride Carbon Dioxide Anion Gap BUN Creatinine Est GFR ( Amer) Glucose Calcium Iron 28.5 L TIBC 199 L % Saturation 14 Ferritin 299.00 Total Bilirubin AST Alkaline Phosphatase Total Protein Albumin Urine Color Urine Appearance Urine pH Ur Specific [place] Urine Protein Urine Glucose (UA) Urine Ketones Urine Blood Urine Nitrite Ur Leukocyte Esterase Urine WBC (Auto) Urine RBC (Auto) Blood Type A POSITIVE Antibody Screen NEGATIVE Impressions: Abdomen/Pelvis CT 08/14/19 14:24 IMPRESSION: 1. Small amount of pneumoperitoneum and postoperative changes in the anterior abdominal wall and right groin, consistent with recent he hernia repair. There is a moderate right hydrocele in the scrotum. Findings are as expected for postoperative change. There is no retroperitoneal hematoma, peritoneal abscess, or evidence of bowel obstruction. 2. Atelectasis at the lung bases. 3. Enlarged prostate gland. 4. Moderate hiatal hernia. Assessment and Plan - Diagnosis (1) Acute blood loss anemia Is this a current diagnosis for this admission?: Yes Plan: Hemoglobin of 6.9. Baseline seems to be around 9 2 days ago. Acute blood drop is likely secondary to patient's recent bilateral inguinal hernia repair that was done on 08/10/2019. Patient does have significant erythema and ecchymosis with some swelling of the scrotal sacs. Has underlying baseline anemia of chronic disease based of iron studies with normal B12 and folic acid levels. I have asked surgery to evaluate patient as this seems to be a postsurgical complication. We will give 2 units of PRBCs today Monitor H&H tonight and tomorrow morning (2) PERFECTO (acute kidney injury) Is this a current diagnosis for this admission?: Yes Plan: Postrenal PERFECTO secondary to enlarged prostate. Will recheck BMP in the morning the Rodrigues is in place and bladder has been decompressed. (3) Enlarged prostate Is this a current diagnosis for this admission?: Yes Plan: We will start patient on Flomax given acute urinary retention. Patient is okay with being discharged with a Rodrigues for outpatient follow-up with urologist. (4) Hypo-osmolar hyponatremia Is this a current diagnosis for this admission?: Yes Plan: Chronic condition. Condition addressed on patient's last visit. Suspected Reset Osmostat. Currently stable. No intervention required at this time. Outpatient follow-up with PCP for BMP in 1 week. (5) Status post bilateral inguinal hernia repair Is this a current diagnosis for this admission?: Yes Plan: Plan as above - Time Time Spent with patient: 15-24 minutes
[2019-08-14] MEDS ORDERED: TAMSULOSIN HCL 0.4 MG CAP.SR.24H PO SCH (18:00)
--- NOTE | 2019-08-14 20:04 | PDOC CONSULTATION ---
Consultation Consult Date: 08/14/19 Provider Consulted: ANJELICA JC Consult reason:: Anemia History of Present Illness Admission Date/PCP: 08/14/19 15:39 [facility] History of Present Illness: JUANA SR is a 68 year old male who underwent laparoscopic bilateral inguinal hernia repair on 08/10/2019 Kel reduction of incarcerated right inguinal hernia on 08/09/[address] Munguia. Patient appears to not have any significant blood loss during the time of surgery on 08/10/2019. His hemoglobin at that time was around 9.5. His hemoglobin on 08/11/2019 was 8.9. In the past few days noted some prominence of the suprapubic area and inability to hold his urine. He would void even prior to reaching the bathroom. He went to ED today where a CT scan of the abdomen revealed an enlarged prostate but no abnormality from post bilateral inguinal hernia repairs. There is no hematoma formation. The hemoglobin however was around 6.9. Patient remained hemodynamically stable. Stool for Hemoccult was negative. Past Medical History Cardiac Medical History: Reports: Coronary Artery Disease, Hypertension Denies: Myocardial Infarction Pulmonary Medical History: Reports: Asthma Denies: Bronchitis, Chronic Obstructive Pulmonary Disease (COPD), Pneumonia Neurological Medical History: Denies: Seizures Endocrine Medical History: Denies: Diabetes Mellitus Type 1, Diabetes Mellitus Type 2 Musculoskeltal Medical History: Reports: Arthritis Psychiatric Medical History: Denies: Depression Hematology: Reports: Anemia Past Surgical History Past Surgical History: Reports: Cardiac Catheterization - 2 stents, Cholecystectomy, Coronary Stent - x2, Herniorrhaphy - right inguinal, Orthopedic Surgery - Lt Hip Social History Lives with: Family Smoking Status: Never Smoker Electronic Cigarette use?: No Frequency of Alcohol Use: None Hx Recreational Drug Use: No Hx Prescription Drug Abuse: No - Advance Directive Resuscitation Status: Full Code Family History Family History: Reviewed & Not Pertinent, Hypertension, Malignancy Parental Family History Reviewed: Yes Children Family History Reviewed: No Sibling(s) Family History Reviewed.: No Medication/Allergy Home Medications: Potassium Chloride 20 meq PO DAILY 06/08/19 Tramadol HCl [Ultram 50 mg Tablet] 50 mg PO TID 08/14/19 Allergies/Adverse Reactions: No Known Allergies Allergy (Verified 08/14/19 10:31) Review of Systems Constitutional: PRESENT: as per HPI, other - Denies fever nor chills Genitourinary: PRESENT: other - Has incontinence of the urine with suprapubic discomfort since yesterday Physical Exam Vital Signs: Temp Pulse Resp BP Pulse Ox 98.4 F 84 16 123/59 L 100 08/14/19 18:04 08/14/19 18:04 08/14/19 18:04 08/14/19 18:04 08/14/19 18:04 Intake & Output 08/13/19 08/14/19 08/15/19 06:59 06:59 06:59 Intake Total 240 Output Total 350 Balance -110 Weight 71.6 kg General appearance: PRESENT: no acute distress Exam: Feels a lot better after placement of Rodrigues catheter in ED GI/Abdominal exam: PRESENT: soft - Nontender Gentrourinary exam: PRESENT: ecchymosis, scrotal swelling, indwelling catheter, other - Nontender Skin exam: PRESENT: normal color, warm Results Laboratory Results: 08/14/19 11:55 08/14/19 11:55 08/14/19 08/14/19 08/14/19 11:55 11:55 11:55 WBC 4.0 RBC 2.19 L Hgb 6.9 L Hct 19.3 L MCV 88 MCH 31.8 MCHC 36.1 H RDW 14.2 H Plt Count 132 L Seg Neutrophils % 79.2 H Retic Count (auto) Sodium 127.9 L Potassium 4.1 Chloride 100 Carbon Dioxide 23 Anion Gap 5 BUN 14 Creatinine 1.30 H Est GFR ( Amer) > 60 Glucose 100 Calcium 8.3 L Iron TIBC % Saturation Ferritin Total Bilirubin 1.1 AST 27 Alkaline Phosphatase 46 Total Protein 5.8 L Albumin 2.9 L Vitamin B12 Folate Urine Color YELLOW Urine Appearance CLEAR Urine pH 5.0 Ur Specific [place] 1.006 Urine Protein NEGATIVE Urine Glucose (UA) NEGATIVE Urine Ketones NEGATIVE Urine Blood NEGATIVE Urine Nitrite NEGATIVE Ur Leukocyte Esterase NEGATIVE Urine WBC (Auto) 1 Urine RBC (Auto) 1 Blood Type Antibody Screen 08/14/19 08/14/19 08/14/19 11:55 11:55 13:45 WBC RBC Hgb Hct MCV MCH MCHC RDW Plt Count Seg Neutrophils % Retic Count (auto) 1.08 Sodium Potassium Chloride Carbon Dioxide Anion Gap BUN Creatinine Est GFR ( Amer) Glucose Calcium Iron 28.5 L TIBC 199 L % Saturation 14 Ferritin 299.00 Total Bilirubin AST Alkaline Phosphatase Total Protein Albumin Vitamin B12 293.0 Folate 5.25 Urine Color Urine Appearance Urine pH Ur Specific [place] Urine Protein Urine Glucose (UA) Urine Ketones Urine Blood Urine Nitrite Ur Leukocyte Esterase Urine WBC (Auto) Urine RBC (Auto) Blood Type A POSITIVE Antibody Screen NEGATIVE Impressions: Abdomen/Pelvis CT 08/14/19 14:24 IMPRESSION: 1. Small amount of pneumoperitoneum and postoperative changes in the anterior abdominal wall and right groin, consistent with recent he hernia repair. There is a moderate right hydrocele in the scrotum. Findings are as expected for postoperative change. There is no retroperitoneal hematoma, peritoneal abscess, or evidence of bowel obstruction. 2. Atelectasis at the lung bases. 3. Enlarged prostate gland. 4. Moderate hiatal hernia. Assessment & Plan - Diagnosis (1) Acute blood loss anemia Is this a current diagnosis for this admission?: Yes (2) Anemia Qualifiers: Anemia type: unspecified type Qualified Code(s): D64.9 - Anemia, unspecified Is this a current diagnosis for this admission?: Yes (3) Enlarged prostate Is this a current diagnosis for this admission?: Yes (4) Hyponatremia Is this a current diagnosis for this admission?: Yes (5) Status post bilateral inguinal hernia repair Is this a current diagnosis for this admission?: Yes - Time Time Spent: 30 to 50 Minutes - Plan Summary Plan Summary: 68-year-old male with history of anemia and had laparoscopic bilateral inguinal hernia repair on 08/10/2019 after manual reduction of right inguinal hernia at the x-ray department on 08/09/[address] Munguia. Patient hemoglobin was 9.5 prior to surgery and gradually went down to 8.9 on the first postop day. Today his hemoglobin was 6.9. He remained hemodynamically stable. His stool was negative for Hemoccult. Impression: Patient had anemia of 9.5 prior to surgery and had some blood loss during his surgery. He might also have been partially dehydrated and with hydration and with the blood loss made his hemoglobin to around 6.9 today. However he remained hemodynamically spelt stable. Rodrigues catheter was inserted because of enlarged prostate and problems with incontinence with this patient felt big relief after placement of the catheter. Recommendations: Agree with blood transfusion tonight. Repeat H&H and electrolytes in the morning and if they remain stable patient can be discharged home with a Rodrigues catheter to be followed up by urology urologist Continue with Flomax Follow-up with Dr. Munguia in the surgical clinic in 2 weeks
[2019-08-15 03:54] LABS: ABSOLUTE EOSINOPHILS # (AUTO) 0.1 10^3/uL (0.0-0.6); ABSOLUTE LYMPHOCYTES (AUTO) 0.7 10^3/uL (0.5-4.7); ABSOLUTE MONOCYTES (AUTO) 0.4 10^3/uL (0.1-1.4); ABSOLUTE NEUT (AUTO) 2.8 10^3/uL (1.7-8.2); BASOPHILS % (AUTO) 0.4 % (0-2); EOSINOPHILS % (AUTO) 3.4 % (0-6); HEMATOCRIT 24.1 % (37.9-51.0); HEMOGLOBIN 8.8 g/dL (13.5-17.0); LYMPHOCYTES % (AUTO) 17.6 % (13-45); MEAN CORPUSCULAR HEMOGLOBIN 30.9 pg (27.0-33.4); MEAN CORPUSCULAR HGB CONC 36.6 g/dL (32.0-36.0); MONOCYTES % (AUTO) 9.3 % (3-13); PLATELET COUNT 114 10^3/uL (150-450); RED BLOOD COUNT 2.86 10^6/uL (4.35-5.55); RED CELL DISTRIBUTION WIDTH 15.1 % (11.5-14.0); SEGMENTED NEUTROPHILS % (AUTO) 69.3 % (42-78); TOTAL CELLS COUNTED % (AUTO) 100 %
[2019-08-15 04:07] LABS: MEAN CORPUSCULAR VOLUME 84 fl (80-97)
[2019-08-15 04:10] LABS: BLOOD UREA NITROGEN 15 mg/dL (7-20); CALCIUM 8.4 mg/dL (8.4-10.2); CARBON DIOXIDE 23 mmol/L (22-30); CHLORIDE 105 mmol/L (98-107); GLUCOSE 93 mg/dL (75-110); POTASSIUM 4.1 mmol/L (3.6-5.0)
[2019-08-15 04:19] LABS: ANION GAP 3 (5-19)
--- NOTE | 2019-08-15 12:22 | PDOC DISCHARGE SUMMARY ---
Impression - Admit/DC Date/PCP Admission Date/Primary Care Provider: 08/14/19 15:39 [facility] Discharge Date: 08/15/19 - Discharge Diagnosis (1) Acute blood loss anemia Is this a current diagnosis for this admission?: Yes (2) Status post bilateral inguinal hernia repair Is this a current diagnosis for this admission?: Yes (3) PERFECTO (acute kidney injury) Is this a current diagnosis for this admission?: Yes (4) Enlarged prostate Is this a current diagnosis for this admission?: Yes (5) Hypo-osmolar hyponatremia Is this a current diagnosis for this admission?: Yes (6) Acute urinary retention Is this a current diagnosis for this admission?: Yes - Additional Information Resuscitation Status: Full Code Discharge Diet: Regular Discharge Activity: Activity As Tolerated Referrals: ANNETTE DAHL MD [ACTIVE STAFF] - 08/18/19 8:00 am [facility] [Primary Care Provider] - (08/15/2019 Automated appt. system is unavailable at this time due to systems upgrade.) Prescriptions: Tamsulosin HCl [Flomax 0.4 mg Cap.sr] 0.4 mg PO PCSUPPER #30 cap.sr.24h Home Medications: Tramadol HCl [Ultram 50 mg Tablet] 50 mg PO TID 08/14/19 Tamsulosin HCl [Flomax 0.4 mg Cap.sr] 0.4 mg PO PCSUPPER #30 cap.sr.24h 08/15/19 History of Present Illiness History of Present Illness: JUANA SR is a 68 year old male who presented with complaints of suprapubic pressure and pain. Started yesterday. Also experiencing overflow incontinence. States that he noted that his suprapubic region was distended. Denies any radiation of the pain. Also notes some swelling and redness in his scrotum since the surgery was performed. Notably, patient was recently hospitalized for laparoscopic bilateral inguinal hernia repairs. Also treated for hyponatremia at the time. In the ER, patient was noted to be anemic. Surgery was consulted who requested admission by medical service. Abdominal CT revealed no intra- abdominal bleeding but did show enlarged prostate. Rodrigues was placed with significant drainage of fluid and decompression of the bladder after which patient states that he currently feels a lot better. Hospital Course Hospital Course: Patient was admitted to the hospital for evaluation and treatment of acute blood loss anemia secondary to patient's recent surgical laparoscopic bilateral inguinal hernia repair. Patient had initially presented because of suprapubic pressure and distention and was noted to be having postrenal obstruction from an enlarged prostate. Fully catheter was placed with resolution of his symptoms and voided almost a liter immediately. Since placement of the Rodrigues catheter patient feels a lot better. Patient's will be discharged with a Rodrigues catheter and given some Rodrigues bags and is being referred to the [place] for referral to a urologist. Patient has been started on Flomax and discharge planning has been consulted to set up home health to help with Rodrigues care for patient. Incidentally, patient was noted to have hemoglobin of 6.9 but was not symptomatic. This is down from his baseline of 9. He received 2 units of packed red blood cell transfusion with improvement appropriately to 8.8 today. Patient denies any evidence of GI bleeding. Patient was evaluated by surgery given likely etiology was from recent surgery who simply recommend transfusion and no further interventions. Patient is being discharged today to follow-up with his primary care provider at the [place] as well as Dr. Dahl. Physical Exam Vital Signs: Temp Pulse Resp BP Pulse Ox 99.0 F 68 20 112/56 L 95 08/15/19 07:45 08/15/19 07:45 08/15/19 07:45 08/15/19 07:45 08/15/19 07:45 Intake & Output 08/14/19 08/15/19 08/16/19 06:59 06:59 06:59 Intake Total 1550 Output Total 1650 Balance -100 Weight 70.3 kg General appearance: PRESENT: no acute distress, cooperative Neck exam: ABSENT: JVD Neurological exam: PRESENT: alert, awake, oriented to person, oriented to place, oriented to time Results Laboratory Results: WBC 4.0 10^3/uL (4.0-10.5) 08/15/19 03:39 RBC 2.86 10^6/uL (4.35-5.55) L 08/15/19 03:39 Hgb 8.8 g/dL (13.5-17.0) L 08/15/19 03:39 Hct 24.1 % (37.9-51.0) L 08/15/19 03:39 MCV 84 fl (80-97) D 08/15/19 03:39 MCH 30.9 pg (27.0-33.4) 08/15/19 03:39 MCHC 36.6 g/dL (32.0-36.0) H 08/15/19 03:39 RDW 15.1 % (11.5-14.0) H 08/15/19 03:39 Plt Count 114 10^3/uL (150-450) L 08/15/19 03:39 Lymph % (Auto) 17.6 % (13-45) 08/15/19 03:39 [place] % (Auto) 9.3 % (3-13) 08/15/19 03:39 Eos % (Auto) 3.4 % (0-6) 08/15/19 03:39 Baso % (Auto) 0.4 % (0-2) 08/15/19 03:39 Reticulocyte # 0.024 10^6/uL (0.028-0.122) L 08/14/19 11:55 Absolute Neuts (auto) 2.8 10^3/uL (1.7-8.2) 08/15/19 03:39 Absolute Lymphs (auto) 0.7 10^3/uL (0.5-4.7) 08/15/19 03:39 Absolute Monos (auto) 0.4 10^3/uL (0.1-1.4) 08/15/19 03:39 Absolute Eos (auto) 0.1 10^3/uL (0.0-0.6) 08/15/19 03:39 Absolute Basos (auto) 0.0 10^3/uL (0.0-0.2) 08/15/19 03:39 Seg Neutrophils % 69.3 % (42-78) 08/15/19 03:39 Retic Count (auto) 1.08 % (0.66-2.85) 08/14/19 11:55 PT 14.2 SEC (11.4-15.4) 08/14/19 11:55 INR 1.10 08/14/19 11:55 Sodium 131.1 mmol/L (137-145) L 08/15/19 03:39 Potassium 4.1 mmol/L (3.6-5.0) 08/15/19 03:39 Chloride 105 mmol/L (98-107) 08/15/19 03:39 Carbon Dioxide 23 mmol/L (22-30) 08/15/19 03:39 Anion Gap 3 (5-19) L 08/15/19 03:39 BUN 15 mg/dL (7-20) 08/15/19 03:39 Creatinine 1.20 mg/dL (0.52-1.25) 08/15/19 03:39 Est GFR ( Amer) > 60 (>60) 08/15/19 03:39 Est GFR (MDRD) Non-Af > 60 (>60) 08/15/19 03:39 Glucose 93 mg/dL (75-110) 08/15/19 03:39 Calcium 8.4 mg/dL (8.4-10.2) 08/15/19 03:39 Magnesium 1.9 mg/dL (1.6-2.3) 08/15/19 03:39 Iron 28.5 ug/dL (49-181) L 08/14/19 11:55 TIBC 199 ug/dL (250-450) L 08/14/19 11:55 % Saturation 14 % 08/14/19 11:55 Ferritin 299.00 ng/mL (17.9-464.0) 08/14/19 11:55 Total Bilirubin 1.1 mg/dL (0.2-1.3) 08/14/19 11:55 Direct Bilirubin 0.0 mg/dL (0.0-0.4) 08/14/19 11:55 Neonat Total Bilirubin Not Reportable 08/14/19 11:55 Neonat Direct Bilirubin Not Reportable 08/14/19 11:55 Neonat Indirect Bili Not Reportable 08/14/19 11:55 AST 27 U/L (17-59) 08/14/19 11:55 ALT 9 U/L (<50) 08/14/19 11:55 Alkaline Phosphatase 46 U/L (38-126) 08/14/19 11:55 Total Protein 5.8 g/dL (6.3-8.2) L 08/14/19 11:55 Albumin 2.9 g/dL (3.5-5.0) L 08/14/19 11:55 Vitamin B12 293.0 pg/mL (239-931) 08/14/19 11:55 Folate 5.25 ng/mL (>2.76) 08/14/19 11:55 Urine Color YELLOW 08/14/19 11:55 Urine Appearance CLEAR 08/14/19 11:55 Urine pH 5.0 (5.0-9.0) 08/14/19 11:55 Ur Specific [place] 1.006 08/14/19 11:55 Urine Protein NEGATIVE mg/dL (NEGATIVE) 08/14/19 11:55 Urine Glucose (UA) NEGATIVE mg/dL (NEGATIVE) 08/14/19 11:55 Urine Ketones NEGATIVE mg/dL (NEGATIVE) 08/14/19 11:55 Urine Blood NEGATIVE (NEGATIVE) 08/14/19 11:55 Urine Nitrite NEGATIVE (NEGATIVE) 08/14/19 11:55 Urine Bilirubin NEGATIVE (NEGATIVE) 08/14/19 11:55 Urine Urobilinogen NEGATIVE mg/dL (<2.0) 08/14/19 11:55 Ur Leukocyte Esterase NEGATIVE (NEGATIVE) 08/14/19 11:55 Urine WBC (Auto) 1 /HPF 08/14/19 11:55 Urine RBC (Auto) 1 /HPF 08/14/19 11:55 Squamous Epi Cells Auto <1 /HPF 08/14/19 11:55 Urine Mucus (Auto) RARE /LPF 08/14/19 11:55 Urine Ascorbic Acid NEGATIVE (NEGATIVE) 08/14/19 11:55 POC Stool Occult Blood NEGATIVE (NEGATIVE) 08/14/19 15:18 Blood Type A POSITIVE 08/14/19 13:45 Blood Type Confirm A POSITIVE 08/14/19 16:00 Antibody Screen NEGATIVE 08/14/19 13:45 Crossmatch See Detail 08/14/19 13:45 Impressions: Abdomen/Pelvis CT 08/14/19 14:24 IMPRESSION: 1. Small amount of pneumoperitoneum and postoperative changes in the anterior abdominal wall and right groin, consistent with recent he hernia repair. There is a moderate right hydrocele in the scrotum. Findings are as expected for postoperative change. There is no retroperitoneal hematoma, peritoneal abscess, or evidence of bowel obstruction. 2. Atelectasis at the lung bases. 3. Enlarged prostate gland. 4. Moderate hiatal hernia. Plan Time Spent: Less than 30 Minutes Stroke Is this a Stroke Patient?: No Acute Heart Failure - Is this a Heart Failure Patient?: No
[2019-08-15 12:24] VITALS: BP 141/57
== END 2019-08-15 12:56 | disposition home health service (06) ==
LOC: ER 10:15 → EH 15:39 → 4S 17:42
PROVIDERS: ADMIT Internal Medicine; ATTEND Internal Medicine
DX: K91.840 Postprocedural hemorrhage of a digestive system organ or structure following a digestive system procedure (principal); D62 Acute posthemorrhagic anemia; Y83.8 Other surgical procedures as the cause of abnormal reaction of the patient, or of later complication, without mention of misadventure at the time of the procedure; N17.9 Acute kidney failure, unspecified; N40.1 Benign prostatic hyperplasia with lower urinary tract symptoms; R33.8 Other retention of urine; N39.490 Overflow incontinence; R35.1 Nocturia; R39.15 Urgency of urination; D63.8 Anemia in other chronic diseases classified elsewhere; E87.1 Hypo-osmolality and hyponatremia; R60.0 Localized edema; I25.10 Atherosclerotic heart disease of native coronary artery without angina pectoris; Z95.5 Presence of coronary angioplasty implant and graft; Z90.49 Acquired absence of other specified parts of digestive tract
CPT/HCPCS: 99285; 51702; 86900; 86901; 36415 ×2; 36430; 86850; 82607; 82728; 82746; 83540; 83550; 83735; 85025; 85610; 82270; 85045; 80048; 80053; 81001; 86920; 74176; P9016; G0378

== ENCOUNTER 2019-09-04 19:39 | Emergency (ER) | payer OTHER, MEDICARE ==
--- NOTE | 2019-09-04 20:18 | ER Document Report ---
ED Medical Screen (RME) - General Chief Complaint: Urinary Retention Stated Complaint: URINARY PROBLEMS Time Seen by Provider: 09/04/19 20:16 Primary Care Provider: DAVE,ANTOLIN [Primary Care Provider] - Follow up as needed Mode of Arrival: Ambulatory Information source: Patient Notes: 68-year-old male presents to ED for complaint of urinary retention. He states that he came in last month and had a catheter placed and then at 830 this morning he went to the [facility] and they removed the catheter. He states he feels like he has to urinate but he has not urinated since 830 this morning. I have greeted and performed a rapid initial assessment of this patient. A comprehensive ED assessment and evaluation of the patient, analysis of test results and completion of medical decision making process will be conducted by an additional ED providers. TRAVEL OUTSIDE OF THE [place] IN LAST 30 DAYS: No - Related Data Allergies/Adverse Reactions: No Known Allergies Allergy (Verified 09/04/19 20:09) Past Medical History - Past Medical History Cardiac Medical History: Reports: Hx Coronary Artery Disease, Hx Hypertension Denies: Hx Heart Attack Pulmonary Medical History: Reports: Hx Asthma Denies: Hx Bronchitis, Hx COPD, Hx Pneumonia Neurological Medical History: Denies: Hx Cerebrovascular Accident, Hx Seizures Endocrine Medical History: Denies: Hx Diabetes Mellitus Type 1, Hx Diabetes Mellitus Type 2 Musculoskeltal Medical History: Reports Hx Arthritis Psychiatric Medical History: Denies: Hx Depression Past Surgical History: Reports: Hx Abdominal Surgery - rt inguinal, Hx Cardiac Catheterization - 2 stents, Hx Cholecystectomy, Hx Coronary Stent - x2, Hx He rniorrhaphy - right inguinal, Hx Orthopedic Surgery - Lt Hip - Immunizations Hx Diphtheria, Pertussis, Tetanus Vaccination: - UNKNOWN Physical Exam - Vital signs Vitals: Temp Pulse Resp BP Pulse Ox 98.1 F 74 20 121/46 L 98 09/04/19 19:44 09/04/19 19:44 09/04/19 19:44 09/04/19 19:44 09/04/19 19:44 Course - Vital Signs Vital signs: Temp Pulse Resp BP Pulse Ox 98.1 F 74 20 121/46 L 98 09/04/19 19:44 09/04/19 19:44 09/04/19 19:44 09/04/19 19:44 09/04/19 19:44 Doctor's Discharge - Discharge Referrals: [facility] [[facility]] - Follow up as needed
[2019-09-04] MEDS ORDERED: LIDOCAINE 2% URO-JET 5 ML KIT MM ONE (20:36)
--- NOTE | 2019-09-04 20:49 | ER Document Report ---
ED General - General Chief Complaint: Urinary Retention Stated Complaint: URINARY PROBLEMS Time Seen by Provider: 09/04/19 20:16 Primary Care Provider: [facility] [Primary Care Provider] - Follow up as needed Mode of Arrival: Ambulatory Information source: Patient TRAVEL OUTSIDE OF THE [place] IN LAST 30 DAYS: No - HPI Onset: Other - earlier in the day Onset/Duration: Gradual - throughout today after his Rodrigues was removed Quality of pain: Pressure Severity: Moderate Pain Level: 2 Associated symptoms: Other - inability to urinate Exacerbated by: Denies Relieved by: Denies Similar symptoms previously: Yes - when he had a Rodrigues Catheter placed on 08/14/19 Recently seen / treated by doctor: Yes - patient had a hernia surgery in August complicated by urinary retention Notes: 68 year old male with a history of HTN, CAD, BPH, recent Hernia Surgery complicated by Urinary Retention needing a Rodrigues (just removed by a Urologist in [place] today) here in the ER for urinary retention since this afternoon. The patient tells me he had a Rodrigues in for about 2 weeks and it was just removed today. The patient says he is supposed to follow up with the Urologist in a couple weeks for a Cystoscopy. The patient denies fevers, chills, sweats, nausea, vomiting, flank pain. - Related Data Allergies/Adverse Reactions: No Known Allergies Allergy (Verified 09/04/19 20:09) Past Medical History - General Information source: Patient - Social History Smoking Status: Never Smoker Frequency of alcohol use: None Drug Abuse: None Family History: Reviewed & Not Pertinent, Hypertension, Malignancy Patient has homicidal ideation: No - Past Medical History Cardiac Medical History: Reports: Hx Coronary Artery Disease, Hx Hypertension Denies: Hx Heart Attack Pulmonary Medical History: Reports: Hx Asthma Denies: Hx Bronchitis, Hx COPD, Hx Pneumonia Neurological Medical History: Denies: Hx Cerebrovascular Accident, Hx Seizures Endocrine Medical History: Denies: Hx Diabetes Mellitus Type 1, Hx Diabetes Mellitus Type 2 Musculoskeletal Medical History: Reports Hx Arthritis Psychiatric Medical History: Denies: Hx Depression Past Surgical History: Reports: Hx Abdominal Surgery - rt inguinal, Hx Cardiac Catheterization - 2 stents, Hx Cholecystectomy, Hx Coronary Stent - x2, Hx Herniorrhaphy - right inguinal, Hx Orthopedic Surgery - Lt Hip - Immunizations Hx Diphtheria, Pertussis, Tetanus Vaccination: - UNKNOWN Hx Pneumococcal Vaccination: 08/31/18 Review of Systems - Review of Systems Constitutional: No symptoms reported EENT: No symptoms reported Cardiovascular: No symptoms reported Respiratory: No symptoms reported Gastrointestinal: No symptoms reported Genitourinary: Retention Male Genitourinary: No symptoms reported Musculoskeletal: No symptoms reported Skin: No symptoms reported Hematologic/Lymphatic: No symptoms reported Neurological/Psychological: No symptoms reported -: Yes All other systems reviewed and negative Physical Exam - Vital signs Vitals: Temp Pulse Resp BP Pulse Ox 98.1 F 74 20 121/46 L 98 09/04/19 19:44 09/04/19 19:44 09/04/19 19:44 09/04/19 19:44 09/04/19 19:44 - Notes Notes: GENERAL: Well-appearing, well-nourished and in no acute distress. HEAD: Atraumatic, normocephalic. EYES: Pupils equal round and reactive to light, extraocular movements intact, sclera anicteric, conjunctiva are normal. ENT: External ears normal, nares patent, oropharynx clear without exudates. Moist mucous membranes. NECK: Normal range of motion, supple without lymphadenopathy or JVD. LUNGS: Breath sounds clear to auscultation bilaterally and equal. No wheezes rales or rhonchi. HEART: Regular rate and rhythm without murmurs, rubs or gallops. ABDOMEN: Healing hernia surgical wounds. Soft, nontender, normoactive bowel sounds. No guarding, no rebound. No masses appreciated. EXTREMITIES: Normal range of motion, no pitting or edema. No clubbing or cyanosis. NEUROLOGICAL: Cranial nerves II through XII grossly intact. Normal speech, normal gait. PSYCH: Normal mood, normal affect. SKIN: Warm, Dry, normal turgor, no rashes or lesions noted. Course - Re-evaluation Re-evalutation: 09/04/19 21:27 The patient is here for urinary retention after having a Rodrigues that was in for about 2 weeks removed today at a Urologist office in [place]. The patient had a Rodrigues placed in this ER and he had over 900cc of urine output. 09/04/19 22:09 The patient's UA looks mildly infectious but this could be from having a Rodrigues in place for the last several weeks. Will culture urine and treat with Keflex since the patient again has urinary retention. Patient told to follow up with his PCP and Urologist and to leave the current Rodrigues in place until told otherwise by Urology. - Vital Signs Vital signs: Temp Pulse Resp BP Pulse Ox 98.1 F 74 20 121/46 L 98 09/04/19 20:10 09/04/19 19:44 09/04/19 19:44 09/04/19 19:44 09/04/19 19:44 - Laboratory Laboratory results interpreted by me: 09/04/19 21:08 Urine Blood SMALL H Urine Urobilinogen 2.0 H Ur Leukocyte Esterase SMALL H Discharge - Discharge Clinical Impression: Urinary retention UTI (urinary tract infection) Qualifiers: Urinary tract infection type: acute cystitis Hematuria presence: without hem aturia Qualified Code(s): N30.00 - Acute cystitis without hematuria Condition: Stable Disposition: HOME, SELF-CARE Instructions: Urinary Tract Infection ([facility]), Urinary Retention ([facility]) Additional Instructions: Keep the Rodrigues Catheter in place until seen by Urology. Take antibiotics (Keflex) as prescribed and have your primary care doctor or Urologist follow up your urine culture results from today (they should result in 48 hours). Prescriptions: Cephalexin Monohydrate [Keflex 500 mg Capsule] 500 mg PO BID 7 Days #14 capsule Referrals: [facility] [Primary Care Provider] - Follow up as needed
[2019-09-04 21:39] LABS: APPEARANCE,URINE CLEAR; BILIRUBIN,URINE NEGATIVE (NEGATIVE); COLOR,URINE YELLOW; GLUCOSE, URINE NEGATIVE (NEGATIVE); KETONES,URINE NEGATIVE (NEGATIVE); LEUKOCYTE ESTERASE,URINE SMALL (NEGATIVE); NITRITE,URINE NEGATIVE (NEGATIVE); PROTEIN,URINE NEGATIVE (NEGATIVE); URINE SPECIFIC GRAVITY 1.004
[2019-09-04 22:31] VITALS: BP 117/64
== END 2019-09-04 22:25 | disposition home or self-care (01) ==
LOC: ER 19:39
DX: N30.00 Acute cystitis without hematuria (principal); R33.9 Retention of urine, unspecified; I10 Essential (primary) hypertension; I25.10 Atherosclerotic heart disease of native coronary artery without angina pectoris; Z90.49 Acquired absence of other specified parts of digestive tract
CPT/HCPCS: 99283; 51702; 87086; 81001; J3490; 87088